=== PATIENT | female | born 1930 | race Caucasian/White ===

== ENCOUNTER 2016-08-30 23:47 | Inpatient (IN) | payer OTHER, MEDICARE ==
[~2016-08-30] VITALS: Ht 142.2 cm; Wt 63.5 kg
--- NOTE | 2016-08-30 23:52 | NUR ---
TRIAGE: FANNYA FROM FAMILYS HOME W/ HYPOGLYCEMIC EPISODE D/T RECENT DIET CHANGES, FINGERSTICK ON EMS ARRIVAL:32, MEDICATED W/ ORAL GLUCOSE AND FINGERSTICK INCREASED TO 121. PATIENT ARRIVES ALERT AND ORIENTED X3. DENIES CURRENT DIZZINESS/ LIGHTHEADEDNESS. CURRENTLY TAKES METFORMIN. HX COPD, BASELINE 2LNC. WAS JUST D/MILY FROM [facility] FOR COPD EXACERBATION.
--- NOTE | 2016-08-30 23:53 | NUR ---
MD CARDENAS EVALUATING PATIENT AT THIS TIME.
--- NOTE | 2016-08-30 23:56 | ED AMS/SEIZURE/WEAK/DIZZY ---
History of Present Illness General Chief Complaint: General Adult Stated Complaint: BIBA HYPOGLYCEMIA Source: patient, family, EMS Exam Limitations: no limitations Vital Signs & Intake/Output Vital Signs & Intake/Output Vital Signs Date Time Temp Pulse Resp B/P B/P Pulse O2 O2 Flow FiO2 Mean Ox Delivery Rate 08/31 0800 98.3 79 20 178/84 97 Room Air 08/31 0656 84 178/86 08/31 0526 Nasal 2.0L Cannula 08/31 0307 96.0 72 20 168/78 100 Nasal 2.0L Cannula 08/31 0000 96 Nasal 2.0L Cannula 08/30 2352 95.6 90 18 146/82 94 Nasal 2.0L Cannula Allergies Coded Allergies: No Known Allergies (08/31/16) Reconcile Medications Aspirin (Ecotrin*) 81 MG TABLET.DR 1 TAB PO DAILY HEART HEALTH (Reported) Budesonide 0.5 MG/2 ML AMPUL.NEB 1 AMP INH/JOSIAH DAILY COPD (Reported) Diltiazem HCl (Cardizem Cd) 360 MG CAP.ER.24H 1 CAP PO DAILY HEART HEALTH ( Reported) Ferrous Sulfate 325 MG (65 MG IRON) TABLET 1 TAB PO BID ANEMIA (Reported) Furosemide 40 MG TABLET 1 TAB PO QAM DIURETIC (Reported) Glyburide 5 MG TABLET 1 TAB PO QAM DIABETES (Reported) Irbesartan 300 MG TABLET 1 TAB PO DAILY HIGH BLOOD PRESSURE (Reported) Metformin HCl 1,000 MG TABLET 1 TAB PO BID DIABETES (Reported) Metoprolol Tartrate 25 MG TABLET 1 TAB PO BID HEART HEALTH (Reported) Pantoprazole Sodium 40 MG TABLET.DR 1 TAB PO BID ACID REFLUX (Reported) Pravastatin Sodium 80 MG TABLET 1 TAB PO QPM HIGH CHOLESTROL (Reported) Triage Note: TRIAGE: BIBA FROM FAMILYS HOME W/ HYPOGLYCEMIC EPISODE D/T RECENT DIET CHANGES, FINGERSTICK ON EMS ARRIVAL:32, MEDICATED W/ ORAL GLUCOSE AND FINGERSTICK INCREASED TO 121. PATIENT ARRIVES ALERT AND ORIENTED X3. DENIES CURRENT DIZZINESS/ LIGHTHEADEDNESS. CURRENTLY TAKES METFORMIN. HX COPD, BASELINE 2LNC. WAS JUST D/MILY FROM [facility] FOR COPD EXACERBATION. Triage Nurses Notes Reviewed? yes Onset: Abrupt Duration: hour(s): Timing: single episode today Injury Environment: home Severity: mild Modifying Factors: Improves With: other. Associated Symptoms: felt generalized weakness HPI: 86yo woman h/o diabetes, presents after hypoglycemic episode. Her family notes, "she was discharged about a week and a half ago with episode of congestive heart failure at [facility]. She has been living with us for the past week and half. She's been on Lasix. Tonight after dinner she felt a little weak in both of her legs. She did not pass out or feel chest pain or shortness of breath. I use my daughter's glucometer and it said that the her glucose was low. And so we called 911." The medics noted that her glucose was 32. She was given oral glucose supplementation. Follow-up glucose was in the low 100s. She reports upon arrival that she is feeling much better and is otherwise well. She reports that she did not have chest pain shortness of breath abdominal pain. She does confer that she had dizziness and generalized weakness in both of her legs. She is presently feeling well. Past History Travel History Traveled to [place] past 21 day No Medical History Any Pertinent Medical History? see below for history Cardiovascular: CHF, hypertension, hyperlipidemia Endocrine: diabetes Surgical History Surgical History: non-contributory Family History Hx Contributory? No Review of Systems Review of Systems Constitutional: Reports: no symptoms. EENTM: Reports: no symptoms. Respiratory: Reports: no symptoms. Cardiovascular: Reports: no symptoms. GI: Reports: no symptoms. Genitourinary: Reports: no symptoms. Musculoskeletal: Reports: no symptoms. Skin: Reports: no symptoms. Neurological/Psychological: Reports: no symptoms. Hematologic/Endocrine: Reports: no symptoms. Immunologic/Allergic: Reports: no symptoms. All Other Systems: Reviewed and Negative Physical Exam Physical Exam General Appearance: well developed/nourished, no apparent distress Head: atraumatic, normal appearance Eyes: Bilateral: normal appearance. Ears, Nose, Throat: normal pharynx, normal ENT inspection, hearing grossly normal Neck: normal inspection, supple, full range of motion Respiratory: normal breath sounds, chest non-tender, no respiratory distress, quiet respiration, lungs clear Cardiovascular: regular rate/rhythm Gastrointestinal: normal bowel sounds, soft, non-tender, no organomegaly Back: normal inspection Extremities: normal range of motion Neurologic/Psych: no motor/sensory deficits, awake, alert, oriented x 3 Skin: intact, normal color, warm/dry Core Measures ACS in differential dx? No CVA/TIA Diagnosis: No Severe Sepsis Present: No Septic Shock Present: No Progress Differential Diagnosis: electrolyte abnormality versus hypoglycemia versus dehydration versus renal failure versus other. Plan of Care: Orders Procedure Date/time Status Heart Healthy Diet 08/31 B Active Change service to 08/31 0656 Active LACTIC ACID 08/31 0621 Active CBC WITHOUT DIFFERENTIAL 08/31 0600 Active BASIC ELECTROLYTES PLUS BUN&CR 08/31 0600 Complete URINALYSIS 08/31 0533 Active Vital Signs 08/31 0525 Active Teach/Educate 08/31 0525 Active Pain Treatment and Response 08/31 0525 Active Nutritional Intake, Monitor 08/31 0525 Active Isolation 08/31 0525 Active Intake & Output 08/31 0525 Active Patient Care Conference 08/31 0525 Active Activity/Ambulation 08/31 0525 Active Pathway - chart 08/31 0426 Active House Staff 08/31 0426 Active Patient Data 08/31 0426 Active Code Status 08/31 0426 Active US-RENAL/KIDNEY 08/31 0410 Active Add-on Test (ER Only) 08/31 0410 Active Intake & Output 08/31 0410 Complete FingerStick- Glucose 08/31 0410 Active Patient Data 08/31 0316 Active Saline Lock 08/31 0253 Active Misc Message 08/31 0253 Active ED Holding Orders 08/31 0253 Active Admit to inpatient 08/31 0253 Active Vital Signs 08/31 0253 Active Code Status 08/31 0253 Complete CULTURE,STOOL 08/31 0032 Active C.DIFFICILE 08/31 0032 Active MAGNESIUM 08/31 0015 Complete FingerStick- Glucose 08/31 0003 Active VTE Mechanical Prophylaxis 08/31 UNK Active Telemetry/Charter Coordinator 08/31 UNK Active Nursing Misc 08/31 UNK Active TROPONIN LEVEL 08/30 2357 Complete COMPREHENSIVE METABOLIC PANEL 08/30 2357 Complete CBC WITHOUT DIFFERENTIAL 08/30 2357 Complete EKG 08/30 2357 Active Intake & Output 08/30 2350 Active Current Medications Sig/Elicia Start time Last Medication Dose Stop Time Status Admin Pravastatin Sodium 80 MG 1700 08/31 1700 AC (Pravachol) Aspirin Buffered 81 MG DAILY 08/31 1000 AC (Ecotrin) Diltiazem HCl 360 MG DAILY 08/31 1000 AC (Cardizem CD) Metoprolol Tartrate 25 MG BID 08/31 1000 AC 08/31 (Lopressor) 0656 Insulin Aspart 0 TIDAC 08/31 0800 AC (NovoLOG) Magnesium Sulfate 1 GM ONCE ONE 08/31 729 AC (Mag Sulfate in D5) 08/31 1129 Dextrose/Water 100 ML (D5W) Sodium Chloride 1,000 ML Q20H 08/31 729 AC (Normal Saline 0.9%) 08/31 2048 Omeprazole 40 MG DAILY AC 08/31 07 AC 08/31 (Prilosec) 0657 Heparin Sodium 5,000 UNIT Q8 08/31 06 AC 08/31 (Porcine) 0657 Acetaminophen 650 MG Q6P PRN 08/31 0430 AC (Tylenol) Laboratory Tests 08/31/16 0615: Lactic Acid Pending 08/31/16 0615: Anion Gap 17 H, Estimated GFR 16 L, BUN/Creatinine Ratio 25.4 H, CBC w Diff Pending, WBC Pending, RBC Pending, Hgb Pending, Hct Pending, MCV Pending, MCH Pending, RDW Pending, Plt Count Pending, MPV Pending, PUBS MCHC Pending 08/31/16 0321: Lactic Acid Cancelled 08/31/16 0015: Anion Gap 17 H, Estimated GFR 13 L, BUN/Creatinine Ratio 20.9, Glucose 95, Calcium 8.6, Magnesium 1.4 L, Total Bilirubin 0.3, AST 17, ALT 32, Alkaline Phosphatase 52, Troponin I 0.01, Total Protein 6.9, Albumin 4.5, Globulin 2.4, Albumin/Globulin Ratio 1.9, CBC w Diff NO MAN DIFF REQ, RBC 4.06 L, MCV 77.5 L , MCH 24.9 L, RDW 26.4 H, MPV 10.0, Gran % 84.5 H, Lymphocytes % 6.4 L, Monocytes % 8.3, Eosinophils % 0.6, Basophils % 0.2, Absolute Granulocytes 6.2, Absolute Lymphocytes 0.5 L, Absolute Monocytes 0.6, Absolute Eosinophils 0, Absolute Basophils 0, PUBS MCHC 32.1 L Microbiology 08/31 48 STOOL: Clostridium difficile Toxin A & B - RECD 08/31 48 STOOL: Stool Culture - RECD Diagnostic Imaging: Viewed by Me: Radiology Read. Discussed w/RAD: Radiology Read. CXR Impression: no acute disease, full report below Initial ED EKG: no acute changes Comments: PATIENT: OLIVIER GAGNON PRESENT AGE: 86 PATIENT ACCOUNT NO: [id number] : [birth year] LOCATION: [facility] ORDERING PHYSICIAN: JACINTO CARDENAS MD SERVICE DATE: 08/31/16 EXAM TYPE: RAD - XRY-PORTABLE CHEST XRAY EXAMINATION: XR PORTABLE CHEST CLINICAL INFORMATION: CHF COMPARISON: None TECHNIQUE: Portable frontal view of the chest was obtained. FINDINGS: Median sternotomy wires appear intact. The lungs are well expanded. No edema. Evaluation at the left base is limited due to prominence of the cardiac silhouette. No pleural effusion. No pneumothorax. No definite consolidation. No acute osseous abnormality. IMPRESSION: Prominent cardiac silhouette which limits evaluation at the left base. No edema. DICTATED BY: JUAN ALBERTO CAMPBELL MD DATE/TIME DICTATED:08/31/16408 CIRCULAR SAW FILER:JIAN DATE/TIME TRANSCRIBED:08/31/16408 CONFIDENTIAL, DO NOT COPY WITHOUT APPROPRIATE AUTHORIZATION. <Electronically signed in Other Vendor System> SIGNED BY: JUAN ALBERTO CAMPBELL MD 08/31 0413 Departure Departure Disposition: STILL A PATIENT Condition: Stable Clinical Impression Primary Impression: Renal failure Secondary Impressions: Hyperkalemia, Hypoglycemia Departure Forms: Customer Survey General Discharge Information Admission Note Spoke With: KENNEDY BARTON MD Documentation of Exam: Documentation of any treatments & extenuating circumstances including Concerns Regarding Discharge (functional status, medication knowledge or non-compliance, living conditions, etc.) that warrant an admission rather than observation: pt with complex presentation....with chf, on lasix, but now likely overdiuresed leading to longer clearance of her sulfonurylurea, resulting in hypoglycemia. pt merits gentle iv fluids, recheck creatinine, get records from [place]
--- NOTE | 2016-08-31 00:03 | NUR ---
FINGERSTICK 108. PT AWAKE, ALERT, TALKATIVE
--- NOTE | 2016-08-31 00:13 | NUR ---
LABS SENT SST, LAV, BLUE AND PANTO[facility]
[2016-08-31 00:30] LABS: ABSOLUTE BASOPHIL COUNT 0 /CUMM (0.0-0.2); ABSOLUTE EOSINOPHIL COUNT 0 /CUMM (0.0-0.7); ABSOLUTE GRANULOCYTE CT 6.2 /CUMM (1.4-6.5); ABSOLUTE LYMPH COUNT 0.5 /CUMM (1.2-3.4); ABSOLUTE MONOCYTE COUNT 0.6 /CUMM (0.10-0.60); BASOPHIL % 0.2 % (0.0-2.0); EOSINOPHIL % 0.6 % (0-5); GRANULOCYTE % 84.5 % (42.2-75.2); HEMATOCRIT 31.5 % (37-47); MEAN CORPUSCULAR HGB 24.9 PG (27.0-31.0); MEAN CORPUSCULAR HGB CONC 32.1 G/DL (33.0-37.0); MEAN CORPUSCULAR VOLUME 77.5 FL (81.0-99.0); PLATELET COUNT 187 /CUMM (130-400); RBC DISTRIBUTION WIDTH 26.4 % (11.5-14.5); RED BLOOD CELL CT 4.06 /CUMM (4.20-5.40); WHITE BLOOD CELL COUNT 7.4 /CUMM (4.8-10.8)
--- NOTE | 2016-08-31 00:33 | NUR ---
C-DIFF/STOOL CULTURE OBTAINED AND SENT TO LAB PER PATIENT AND PATIENT'S FAMILY REQUEST. PATIENT REPORTING "HAVING DIARRHEA PAST FEW DAYS."
--- NOTE | 2016-08-31 02:02 | NUR ---
CURRENT MD THERESA GARCAI AWARE AND AT BEDSIDE FOR REEVAL.
--- NOTE | 2016-08-31 02:35 | NUR ---
PATIENT BEING ASSISTED TO BATHROOM AT THIS TIME BY VENESSA VANG VIA WHEELCHAIR.
--- NOTE | 2016-08-31 03:20 | History & Physical ---
Past History Travel History Traveled to [place] past 21 day No Medical History Neurological: NONE EENT: NONE Cardiovascular: CHF Respiratory: NONE Gastrointestinal: NONE Hepatic: NONE Renal: NONE Musculoskeletal: NONE Psychiatric: NONE Endocrine: diabetes Blood Disorders: NONE Cancer(s): NONE CLINICAL TRIAL COORDINATOR/Reproductive: NONE
--- NOTE | 2016-08-31 03:42 | NUR ---
HOUSE STAFF AT BEDSIDE.
--- NOTE | 2016-08-31 03:57 | NUR ---
REPORT CALLED TO CHUY CARMICHAEL.
--- NOTE | 2016-08-31 04:01 | History & Physical ---
ESTEBAN CLAROS MD 08/31/16 0400: General Information and HPI MD Statement: I have seen and personally examined OLIVIER GAGNON and documented this H&P. The patient is a 86 year old F who presented with a patient stated chief complaint of hypoglycemia. 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 In the ED, patient was given oral glucose which increased to blood glucose from 32 to over 100. Patient states that today she was eating a sandwich fruit and seltzer when she had to use the bathroom and didn't want to trouble her son by telling him she wasn't feeling well. He was helping her to the bathroom when she stated that she felt unwell, dizzy, was diaphoretic, felt her heart racing and shaking. She was recently admitted to [facility] for COPD exacerbation. She also had several episodes of diarrhea and one episode of nausea and vomiting the past two days. Her rice dryer mechanic is Luz, her die cleaner was Dr. Ordaz but is changing to Dr. Thakkar. Allergies/Medications Allergies: Coded Allergies: No Known Allergies (08/31/16) Home Med list Aspirin (Ecotrin*) 81 MG TABLET.DR 1 TAB PO DAILY HEART HEALTH (Reported) Budesonide 0.5 MG/2 ML AMPUL.NEB 1 AMP INH/JOSIAH DAILY COPD (Reported) Diltiazem HCl (Cardizem Cd) 360 MG CAP.ER.24H 1 CAP PO DAILY HEART HEALTH ( Reported) Ferrous Sulfate 325 MG (65 MG IRON) TABLET 1 TAB PO BID ANEMIA (Reported) Furosemide 40 MG TABLET 1 TAB PO QAM DIURETIC (Reported) Glyburide 5 MG TABLET 1 TAB PO QAM DIABETES (Reported) Irbesartan 300 MG TABLET 1 TAB PO DAILY HIGH BLOOD PRESSURE (Reported) Metformin HCl 1,000 MG TABLET 1 TAB PO BID DIABETES (Reported) Metoprolol Tartrate 25 MG TABLET 1 TAB PO BID HEART HEALTH (Reported) Pantoprazole Sodium 40 MG TABLET.DR 1 TAB PO BID ACID REFLUX (Reported) Pravastatin Sodium 80 MG TABLET 1 TAB PO QPM HIGH CHOLESTROL (Reported) Compliance With Home Meds: GOOD Past History Travel History Traveled to [place] past 21 day No Medical History Neurological: NONE EENT: NONE Cardiovascular: CHF Respiratory: NONE Gastrointestinal: NONE Hepatic: NONE Renal: NONE Musculoskeletal: NONE Psychiatric: NONE Endocrine: diabetes Blood Disorders: NONE Cancer(s): NONE SPORTS CLERK/Reproductive: NONE Surgical History Surgical History: cardiac valve replacement unknown Past Family/Social History Functional Ability ADLs Independent: dressing, eating, toileting. Ambulation: independent IADLs Needs Assist: shopping, housework, transportation, medication admin. Review of Systems Review of Systems Constitutional: Reports: see HPI. Exam & Diagnostic Data Last 24 Hrs of Vital Signs/I&O Vital Signs Date Time Temp Pulse Resp B/P B/P Pulse O2 O2 Flow FiO2 Mean Ox Delivery Rate 08/31 0307 96.0 72 20 168/78 100 Nasal 2.0L Cannula 08/30 2352 95.6 90 18 146/82 94 Nasal 2.0L Cannula Physical Exam General Appearance Alert, Oriented X3, Cooperative, No Acute Distress Skin No Rashes, No Breakdown Skin Temp/Moisture Exam: Warm/Dry Neck Supple, No JVD, +2 Carotid Pulse wo Bruit Cardiovascular Regular Rate, Normal S1, Normal S2, early systolic murmur 2/6 Lungs Clear to Auscultation, Normal Air Movement Abdomen Normal Bowel Sounds, Soft, No Tenderness, No Masses Neurological Normal Speech, Strength at 5/5 X4 Ext, Normal Tone, Sensation Intact Extremities No Edema, Normal Pulses, No Tenderness/Swelling Vascular Normal Pulses, Pulses Symmetrical Last 24 Hrs of Labs/Kalen: Laboratory Tests 08/31/16 0015: Anion Gap 17 H, Estimated GFR 13 L, BUN/Creatinine Ratio 20.9, Glucose 95, Calcium 8.6, Magnesium Pending, Total Bilirubin 0.3, AST 17, ALT 32, Alkaline Phosphatase 52, Troponin I 0.01, Total Protein 6.9, Albumin 4.5, Globulin 2.4, Albumin/Globulin Ratio 1.9, CBC w Diff NO MAN DIFF REQ, RBC 4.06 L, MCV 77.5 L , MCH 24.9 L, RDW 26.4 H, MPV 10.0, Gran % 84.5 H, Lymphocytes % 6.4 L, Monocytes % 8.3, Eosinophils % 0.6, Basophils % 0.2, Absolute Granulocytes 6.2, Absolute Lymphocytes 0.5 L, Absolute Monocytes 0.6, Absolute Eosinophils 0, Absolute Basophils 0, PUBS MCHC 32.1 L Microbiology 08/31 48 STOOL: Clostridium difficile Toxin A & B - RECD 08/31 48 STOOL: Stool Culture - RECD Diagnostic Data EKG Results nsr rbbb CXR Results no consolidation, limited evaluation of left base Assessment/Plan Assessment: 86 year old female with past medical history of 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 1. Hypoglycemia: Monitor accuchecks Q2H Holding oral hypoglycemics Sliding scale insulin coverage if necessary Can give D5NS if patient becomes hypoglycemic 2. Acute Kidney Injury: likely due to combination of dehydration and nephrotoxic medications Hold metformin and lisinopril Can gently hydrate Renal ultrasound to assess for intrinsic renal disease if fails to improve Check post void residual for post renal failure Will hold of on aggressive IVF hydration with unknown LVEF Trend renal function in AM labs Can consider renal consultation if renal function worsens Avoid NSAIDs 3. Hyperkalemia: secondary to acute renal failure Patient was given kayexalate in the ED Repeat basic electrolytes and monitor potassium levels 4. CAD: Continue ASA, statin, cardizem and lopressor 5: COPD: no respiratory distress, continue supplemental oxygen 2L nasal cannula TRC evaluation DVT ppx-heparin 5000u subcutaneous Q8H Heart healthy diet Full code As Ranked By This Provider Problem List: 1. Hyperkalemia 2. Renal failure Core Measures/Miscellaneous Acute Coronary Syndrome ACS Diagnosis: No Cerebrovascular Accident CVA/TIA Diagnosis: No Congestive Heart Failure CHF Diagnosis: No VTE (View Protocol) VTE Risk Factors: Acute medical illness, Age > 40 No [facility] VTE prophylaxis d/t: No contraindications No VTE Pharm Prophylaxis d/t: No contraindications VTE Diagnosis: No VTE Type: NONE VTE Confirmed by (Test): NONE Sepsis (View Protocol) Severe Sepsis Present: No Septic Shock Septic Shock Present: No Miscellaneous Documentation Attending Case Discussed With: KNENEDY BARTON MD Primary Care Physician: NANCY THAKKAR MD Patient sees these Specialists cardiology pulmonary Level of Patient Care: Telemetry Resident Review Statement Resident Statement: examined this patient, discussed with sales management intern, agreed with sales management intern Other Findings: Patient is 86-year-old female with past medical history significant for oxygen dependent COPD, CAD, status post 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 According to patient she ate half of sandwich and was sitting on couch when she felt dizzy. She was about to go to restroom but was diaphoretic and sweaty. EMS was called and her blood sugar levels were 52. She denied chest pain, palpitations, syncopal episode, headache, any urinary complaints that admits for having 2-3 diarrhea episodes since yesterday. She also had an episode of vomiting yesterday. Vital signs on admission were temperature 95.6, pulse 90, respiratory rate 18, blood pressure 146/82 and she was saturating 94% on 2 L nasal cannula Labs on admission were WBC count 7.4, hemoglobin 10.1, hematocrit 31.5, platelet count 187, sodium 138, potassium 5.6, chloride 104, anion gap 17, BUNs 69, creatinine 3.3, glucose 95, magnesium 1.4. Chest x-ray was negative for any pulmonary edema. EKG was normal sinus rhythm with right bundle branch block. Physical examination Alert and related 3 Head atraumatic Neck supple Chest clear to auscultate Heart S1-S2 normal, systolic murmur Abdomen soft nontender Extremities shows no edema or cyanosis Neurological deficit noted Assessment and plan 86-year-old female with history of CHF, unknown ejection fraction, hypertension, hyperlipidemia, questionable CK D, diabetes mellitus, CAD status post bioprosthetic valve replacement came with chief complaint of hypoglycemic event at home and on admission labs found to have elevated creatinine and hyperkalemia most likely acute on chronic kidney injury. We will admit patient on telemetry floor and will address following problems Problem #1 acute kidney injury most likely acute on chronic kidney injury Problem #2 hyperkalemia most likely due a KI Problem #3 history of diabetes with hypoglycemic event Problem #4 history of hypertension Problem #5 CAD status post bioprosthetic valve replacement Problem #6 history of oxygen dependent COPD Plan We will request records from [facility] in a.m. We will watch patient closely for kidney functions and if it continues to elevate we will request nephrology evaluation We will hold nephrotoxic medications including metformin and lisinopril and will avoid NSAIDs Accu-Cheks every 2 hours for a few hours and if she doesn't have any further hypoglycemic events we can check every 6 hours. Insulin coverage for elevated blood sugars We will avoid IV fluids for now as of unknown ejection fraction and will order renal ultrasound to look for any intrinsic renal pathology. We will check post void bladder scan for residual urine to rule out any post renal/obstructive pathology We will check [place] [facility] records that if no recent echocardiogram will consider echocardiogram. Patient was given Kayexalate in ER and will repeat labs in a.m. Pharmacological DVT prophylaxis Heart healthy diet Patient is full code KENNEDY BARTON 08/31/16 0638: Attending MD Review Statement Attending Statement Attending MD Statement: examined this patient, discuss w/resident/PA/IP LITIGATION PARALEGAL, agreed w/resident/PA/IP LITIGATION PARALEGAL, reviewed EMR data (avail), reviewed images, amended to note Attending Assessment/Plan: CC: Low blood sugar PMH:? Heart failure, COPD, DM, HTN, CAD, aortic valve replacement ? Bioprosthetic Patient is poor historian, family is not available bedside. Patient was recently admitted 1 and half week back to [facility], according to her she had hint of pneumonia, her usual COPD and congestive heart failure. She is not aware of any treatment received in [facility]. She was discharged from there and has been living with her son and [id number]. 4 days back she had 5 watery bowel movements at home, resolved next day she was all right for the next 3 days then yesterday she had somewhat nausea and one episode of vomiting. Today she was feeling dizzy, sweating profusely so family called EMS, her blood glucose was 32 at that time. She was given medicated oral glucose and fingerstick improved to [address] Currently in ER patient denies any dizziness, lightheadedness, chest pain, worsening of shortness of breath. She had 3 watery stools according to her while in ER. Vitals: Temperature 95.6, HR 90, RR 18, blood pressure 146/82, saturating 96 on 2 L. On exam: A O 3, cooperative, no acute distress, neck supple, JVD normal, no lymphadenopathy, mucosa moist, no focal neurological deficit, no dependent edema , no obvious skin rashes or inflammation CVS: S1-S2, RRR, systolic murmur in the aortic area. RS: Very fine crackles bilaterally left more than right but air entry normal, no apparent wheezing.. Abdomen: Soft, NT, ND,, anterior abdominal wall hernia approximately 10 cm in diameter, reducible, no discoloration, bowel sounds present. Peripheral pulses and perfusion normal Labs: WBC 7.4, hemoglobin 10.1, hematocrit 31.5, neutrophils 84%, platelets 187, sodium 138, potassium 5.6, chloride 104, bicarbonate 17, anion gap 17, BUN 69, creatinine 3.3, glucose 95, calcium 8.6, LFT unremarkable, troponin less than 0.01 CXR: Prominent cardiac silhouette which limits evaluation at the left base. No edema. A and P 86 year old female with extensive past medical history but being poor historian and details unknown, never been admitted in this hospital to obtain previous records, presented to ER for episode of hypoglycemia with sugar of 32 at home. Patient had been feeling dizzy sweating and lightheadedness at that time, currently asymptomatic. Patient endorses some diarrhea on and off one episode 4 days back and today 3 watery stools nonbloody and one episode of vomiting. Patient was recently admitted in [facility] for possibly heart failure, COPD, pneumonia, patient is unaware of treatment. Patient lives with the son and [id number] and states that [id number] is very strict on her diet. Physical exam unremarkable except abdominal wall hernia but labs show creatinine of 3.3 with an elevated anion gap acidosis. It's unclear whether patient has any chronic kidney disease or if this is an acute change. In any such event patient is on oral glipizide and metformin which will not get cleared as expected and will cause persistent hypoglycemia, patient would benefit from admission for further evaluation of kidney injury and management of hypoglycemia + Hypoglycemia secondary to oral hypoglycemic in setting of renal insufficiency + ANIBAL versus CKD + Anion gap metabolic acidosis + Anemia - Admit on telemetry - Saline lock IV - Strict I's and O's - Accu-Chek every 2 hours - If persistently hyperglycemic then start D5 NS drip And Consult endocrinology - Hold metformin and sulfonylurea - Trend lactate - Please obtain records from [facility] to compare renal function, recent 2-D echocardiogram whether patient has acute or chronic kidney disease, worsened in setting of dehydration versus having cardiorenal syndrome - Hold Lasix, ACEI - Continue metoprolol, diltiazem, iron supplementation and aspirin - Renal ultrasound in a.m. - Post void bladder scan - C. difficile stool - Watch for worsening diarrhea - DVT prophylaxis with heparin - Adequate pain control
--- NOTE | 2016-08-31 04:13 | RADIOLOGY REPORT ---
EXAMINATION: XR PORTABLE CHEST CLINICAL INFORMATION: CHF COMPARISON: None TECHNIQUE: Portable frontal view of the chest was obtained. FINDINGS: Median sternotomy wires appear intact. The lungs are well expanded. No edema. Evaluation at the left base is limited due to prominence of the cardiac silhouette. No pleural effusion. No pneumothorax. No definite consolidation. No acute osseous abnormality. IMPRESSION: Prominent cardiac silhouette which limits evaluation at the left base. No edema.
--- NOTE | 2016-08-31 04:24 | NUR ---
IV EST #20 LEFT HAND. MD BARTON REMAINS AT BEDSIDE.
--- NOTE | 2016-08-31 04:32 | NUR ---
PATIENT MEDICATED W/ KAEXYLATE PER EMAR. TOLERATED WELL.
[2016-08-31] MEDS ORDERED: FERROUS SULFAT325 M3 PO (04:33)
[2016-08-31] MEDS ORDERED: PANTOPRAZOLE SO40 M1 PO (04:33)
[2016-08-31] MEDS ORDERED: FUROSEMIDE40 M1 PO (04:35)
[2016-08-31] MEDS ORDERED: BUDESONIDE0.5 MG/21 INH/SOL (04:36)
[2016-08-31] MEDS ORDERED: METOPROLOL TART25 M1 PO (04:37)
[2016-08-31] MEDS ORDERED: CARDIZEM CD360 M1 PO (04:38)
[2016-08-31] MEDS ORDERED: IRBESARTAN300 M1 PO (04:39)
[2016-08-31] MEDS ORDERED: METFORMIN HCL1000 M1 PO (04:40)
--- NOTE | 2016-08-31 04:40 | NUR ---
PER MD YANA MD IS PUTTING IN THE MED LIST FOR THE PATIENT AT THIS TIME.
[2016-08-31] MEDS ORDERED: PRAVASTATIN SOD80 M2 PO (04:41)
[2016-08-31] MEDS ORDERED: ASPIRIN EC81 M1 PO (04:42)
[2016-08-31] MEDS ORDERED: GLYBURIDE5 M1 PO (04:42)
--- NOTE | 2016-08-31 06:39 | Admission Certification ---
Admission Certification Certification Statement - As attending physician, I certify that at the time of - admission, based on clinical presentation, severity of - symptoms, need for further diagnostic testing and - therapeutic interventions, and risk of adverse outcomes - without in-hospital treatment, in my clinical assessment, - this patient requires an acute hospital stay for a minimum - of two nights or longer. I have also considered psychsocial - factors such as support system, advanced age, financial - issues, cognitive issues, and failed out-patient treatments, - past re-admission history, safety of patient, and lack of - compliance as applicable. Specific rationale supporting this admission is: Renal insufficiency, hypoglycemia
[2016-08-31 07:52] VITALS: BP 174/62; BP 178/84
[2016-08-31 08:00] VITALS: BP 178/84
[2016-08-31 08:54] LABS: ABSOLUTE BASOPHIL COUNT 0 /CUMM (0.0-0.2); ABSOLUTE EOSINOPHIL COUNT 0.1 /CUMM (0.0-0.7); ABSOLUTE GRANULOCYTE CT 4.3 /CUMM (1.4-6.5); ABSOLUTE LYMPH COUNT 0.8 /CUMM (1.2-3.4); ABSOLUTE MONOCYTE COUNT 0.6 /CUMM (0.10-0.60); BASOPHIL % 0.5 % (0.0-2.0); EOSINOPHIL % 1.5 % (0-5); GRANULOCYTE % 73.4 % (42.2-75.2); HEMATOCRIT 30.8 % (37-47); MEAN CORPUSCULAR HGB 25.1 PG (27.0-31.0); MEAN CORPUSCULAR HGB CONC 31.9 G/DL (33.0-37.0); MEAN CORPUSCULAR VOLUME 78.7 FL (81.0-99.0); MEAN PLATELET VOLUME 10.8 FL (7.4-10.4); PLATELET COUNT 166 /CUMM (130-400); RBC DISTRIBUTION WIDTH 26.5 % (11.5-14.5); RED BLOOD CELL CT 3.92 /CUMM (4.20-5.40); WHITE BLOOD CELL COUNT 5.8 /CUMM (4.8-10.8)
--- NOTE | 2016-08-31 11:20 | PN- Housestaff ---
THEODORA CARDOSO,MORGAN 08/31/16 1100: Subjective Follow-up For: #1. Hypoglycemia #2. Acute kidney injury #3. Hyperkalemia #4. CAD #5. COPD Complaints: pain scale (0-10) Tele-Events Since Last Visit: A. fib and bundle branch block rate 81-82 no events Subjective: She was seen and examined bedside. She denies feeling dizzy no diaphoresis no palpitations no tremulousness. She currently complains of diarrhea, although she is on Kayexalate which causes this. She has not vomited since admission. Overall patient feels okay but notes that she is embarrassed because of her diarrhea. Review of Systems Constitutional: Reports: weakness. EENTM: Reports: no symptoms. Cardiovascular: Reports: no symptoms. Respiratory: Reports: no symptoms. Gastrointestinal: Reports: diarrhea. Genitourinary: Reports: no symptoms. Musculoskeletal: Reports: no symptoms. Skin: Reports: no symptoms. Neurological/Psychological: Reports: no symptoms. Hematologic/Endocrine: Reports: no symptoms. Immunologic/Allergic: Reports: no symptoms. Objective Last 24 Hrs of Vital Signs/I&O Vital Signs Date Time Temp Pulse Resp B/P B/P Pulse O2 O2 Flow FiO2 Mean Ox Delivery Rate 08/31 0800 94 Nasal 2.0L Cannula 08/31 0800 98.3 79 20 178/84 97 Room Air 08/31 0656 84 178/86 08/31 0526 Nasal 2.0L Cannula 08/31 0307 96.0 72 20 168/78 100 Nasal 2.0L Cannula 08/31 0000 96 Nasal 2.0L Cannula 08/30 2352 95.6 90 18 146/82 94 Nasal 2.0L Cannula Intake & Output 08/31 1600 08/31 0800 08/31 0000 Intake Total 200 Output Total Balance 200 Intake, Oral 200 Number 1 Bowel Movements Patient 140 lb Weight Weight Reported by Patient Measurement Method Physical Exam General Appearance: Alert, Oriented X3, Cooperative, No Acute Distress Skin: No Rashes, No Breakdown, No Significant Lesion Skin Temp/Moisture Exam: Warm/Dry Sepsis Skin Exam (color): Normal for Ethnicity HEENT: Atraumatic, PERRLA, EOMI Neck: Supple, No JVD, No thryomegaly Cardiovascular: Regular Rate, Normal S1, Normal S2, No Murmurs, Gallops, Rubs Lungs: Clear to Auscultation, Normal Air Movement Abdomen: Normal Bowel Sounds, Soft, No Tenderness, No Hepatospenomegaly, No Masses Neurological: Normal Speech Extremities: No Clubbing, No Cyanosis, No Edema, Normal Pulses, No Tenderness/ Swelling Vascular: Normal Pulses Sepsis Peripheral Pulse Location: Radial Sepsis Peripheral Pulse Exam: Normal Other Physical Findings: Patient with dry mouth Current Medications: Current Medications Sig/Elicia Start time Last Medication Dose Route Stop Time Status Admin Acetaminophen 650 MG Q6P PRN 08/31 0430 AC PO Aspirin Buffered 81 MG DAILY 08/31 1000 AC 08/31 PO 0903 Diltiazem HCl 360 MG DAILY 08/31 1000 AC 08/31 PO 0903 Heparin Sodium 5,000 UNIT Q8 08/31 0600 AC 08/31 (Porcine) SC 0657 Insulin Aspart 0 TIDAC 08/31 0800 AC SC Magnesium Oxide 400 MG ONE ONE 08/31 0545 DC 08/31 PO 08/31 0546 0903 Magnesium Sulfate 1 GM ONCE ONE 08/31 0730 AC 08/31 Dextrose/Water 100 ML IV 08/31 1129 0903 Metoprolol Tartrate 25 MG BID 08/31 1000 AC 08/31 PO 0656 Omeprazole 40 MG DAILY AC 08/31 0700 AC 08/31 PO 0657 Pravastatin Sodium 80 MG 1700 08/31 1700 AC PO Sodium Chloride 1,000 ML Q20H 08/31 0730 AC 08/31 IV 08/31 2049 0904 Sodium Polystyrene 0 .STK-MED ONE 08/31 0434 DC Sulfonate .ROUTE Sodium Polystyrene 60 ML ONCE ONE 08/31 0300 DC 08/31 Sulfonate PO 08/31 0301 0432 Last 24 Hrs of Lab/Kalen Results Last 24 Hrs of Labs/Mics: Laboratory Tests 08/31/16 0950: Lactic Acid 1.7 08/31/16 0615: Lactic Acid 3.4 H 08/31/16 0615: Anion Gap 17 H, Estimated GFR 16 L, BUN/Creatinine Ratio 25.4 H, CBC w Diff NO MAN DIFF REQ, RBC 3.92 L, MCV 78.7 L, MCH 25.1 L, RDW 26.5 H, MPV 10.8 H , Gran % 73.4, Lymphocytes % 13.8 L, Monocytes % 10.8 H, Eosinophils % 1.5, Basophils % 0.5, Absolute Granulocytes 4.3, Absolute Lymphocytes 0.8 L, Absolute Monocytes 0.6, Absolute Eosinophils 0.1, Absolute Basophils 0, PUBS MCHC 31.9 L 08/31/16 0321: Lactic Acid Cancelled 08/31/16 0015: Anion Gap 17 H, Estimated GFR 13 L, BUN/Creatinine Ratio 20.9, Glucose 95, Calcium 8.6, Magnesium 1.4 L, Total Bilirubin 0.3, AST 17, ALT 32, Alkaline Phosphatase 52, Troponin I 0.01, Total Protein 6.9, Albumin 4.5, Globulin 2.4, Albumin/Globulin Ratio 1.9, CBC w Diff NO MAN DIFF REQ, RBC 4.06 L, MCV 77.5 L , MCH 24.9 L, RDW 26.4 H, MPV 10.0, Gran % 84.5 H, Lymphocytes % 6.4 L, Monocytes % 8.3, Eosinophils % 0.6, Basophils % 0.2, Absolute Granulocytes 6.2, Absolute Lymphocytes 0.5 L, Absolute Monocytes 0.6, Absolute Eosinophils 0, Absolute Basophils 0, PUBS MCHC 32.1 L Microbiology 08/31 48 STOOL: Clostridium difficile Toxin A & B - RECD 08/31 48 STOOL: Stool Culture - RECD Orders ECHO Findings: Normal sinus rhythm right bundle branch block. Radiology Findings: X-ray shows no consolidation limited evaluation of the left lung base Lines/Diet/Fluids Fluids/Infusions: patient had received no fluids in the ER, we started her on 75 an hour of normal saline. 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 Her blood glucose was 32 at home and was found to be 52 by EMS. She also had a 3 day history of diarrhea and vomiting 1 day. In the ED she was found to have elevated creatinine and hyperkalemia to 5.6. Patient was given Kayexalate in the emergency room and no fluids as history of CHF is uncertain. She was admitted to the telemetry floor for monitoring because of her hyperkalemia. * Hypoglycemic event with history of diabetes * Hyperkalemia * Acute kidney injury with questionable history of CKD * Hypertension * COPD * History of CAD Plan Hypoglycemia: * Monitor blood glucose with Accu-Cheks every 2 hours. If blood sugar is stable can switch to Accu-Cheks every 6 hours. * Hold oral hypoglycemics and use sliding scale insulin coverage * Give D5 normal saline if patient becomes hypoglycemic Hyperkalemia * Likely secondary to acute renal failure * Continue to monitor patient on telemetry * Was given Kayexalate in the ED which causes diarrhea, further depleting her volume. * Currently potassium is 5.1 * Monitor electrolytes. Acute kidney injury probably due to dehydration with questionable chronic kidney disease * Patient is quite dehydrated as is evidenced by her physical exam. This is likely contributed to her acute kidney injury. Patient was not given any fluids in the ED because of her unknown congestive heart failure status. Records were obtained from her recent echocardiogram in July 2016 which showed a normal left ejection fraction of 55% but moderate diastolic dysfunction. Currently she is being rehydrated with normal saline 75 an hour. * Chest x-ray shows prominent cardiac silhouette which limits evaluation at the left base, no edema. Physical exam shows clear lungs and she is satting 97% oxygen on room air. * Chest around renal/kidney done today shows no evidence of upper urinary tract obstruction but nonspecific evidence of renal disease * Urinalysis is normal except for some urine protein, and a moderate amount of bacteria. Specific gravity is normal at 1.01. Leukocyte esterase is negative signifying no urinary tract infection with Escherichia coli however this cannot rule out urinary tract infection with another bacteria species. * Patient's creatinine here was 3.3 in the ED, and is now 2.8. Trending down. * Lactic acid was 3.4 now is 1.7, trending down. Likely due to dehydration. * Patient's normal creatinine has been between 1.09 and 1.45 during the previous month when she was admitted to [facility], mild chronic kidney disease. * Hold potentially nephrotoxic drugs including her home metformin and lisinopril , avoid NSAIDs. Hold glipizide as well as it is renally cleared and patients with low renal clearance will retain it which will lead to persistent hypoglycemia. * As patient is severely dehydrated and has been having diarrhea, check stool for C. difficile. COPD * Is currently in no respiratory distress * Can continue on supplemental oxygen as needed CAD and Hypertension * Aspirin, pravastatin 80 mg, Cardizem 360 mg by mouth daily, Lopressor 25 mg by mouth 2 times a day CODE STATUS: Full Heart healthy diet DVT prophylaxis: Heparin 5000 units subcutaneous every 8 hours Problem List: 1. Hyperkalemia 2. Hypoglycemia 3. Acute on chronic renal failure Pain Ratin Pain Location: NONE Pain Goal: Remain pain free Pain Plan: NA Tomorrow's Labs & Rationales: BEP cbc and urinalysis KAYLAN PRATT MD 08/31/169: Attending MD Review Statement Attending Statement Attending MD Statement: examined this patient, discuss w/resident/PA/MINERALOGY PROFESSOR, agreed w/resident/PA/MINERALOGY PROFESSOR, reviewed EMR data (avail), discussed with nursing, reviewed images, amended to note Attending Assessment/Plan: The patient was seen and discussed with house staff. Appears clinically volume depleted. Creatinine decreased from 3.3 to 2.5 with hydration. No clinical CHF. Await records from [facility]. Hold oral hypoglycemics and follow sugars.
[2016-08-31 12:47] VITALS: BP 144/68
--- NOTE | 2016-08-31 13:33 | ULTRASOUND REPORT ---
EXAMINATION: US RETROPERITONEAL COMPLETE (RENAL) CLINICAL INFORMATION: Renal failure. COMPARISON: None TECHNIQUE: Real-time imaging of the kidneys and bladder. FINDINGS: RIGHT KIDNEY: 11.5 x 7 x 4.7 cm (SAG x AP x TRV). The kidney has normal cortical thickness. The renal cortex appears diffusely hyperechoic, as may be seen in medical renal disease. No nephrolithiasis or hydronephrosis. There is a 1.2 cm simple cyst of the lower pole. LEFT KIDNEY: 9.4 x 5.2 x 4.6 cm (SAG x AP x TRV). The kidney has normal cortical thickness. The cortex appears diffusely hyperechoic. No focal parenchymal lesion, nephrolithiasis or hydronephrosis. BLADDER: Urinary bladder is well-distended with estimated volume of 525 mL. No bladder debris, calculus or diverticulum. Ureteral jets were not identified during the time of imaging. IMPRESSION: 1. No evidence of upper urinary tract obstruction. 2. Kidneys are relatively echogenic, bilaterally, as may be seen in medical renal disease.
[2016-08-31 14:52] VITALS: BP 140/64
[2016-08-31 23:16] VITALS: BP 148/78
[2016-09-01 06:50] VITALS: BP 128/72
[2016-09-01 08:46] LABS: ABSOLUTE BASOPHIL COUNT 0 /CUMM (0.0-0.2); ABSOLUTE EOSINOPHIL COUNT 0.1 /CUMM (0.0-0.7); ABSOLUTE GRANULOCYTE CT 3.4 /CUMM (1.4-6.5); ABSOLUTE LYMPH COUNT 0.6 /CUMM (1.2-3.4); ABSOLUTE MONOCYTE COUNT 0.5 /CUMM (0.10-0.60); BASOPHIL % 0.7 % (0.0-2.0); EOSINOPHIL % 1.8 % (0-5); GRANULOCYTE % 72.9 % (42.2-75.2); HEMATOCRIT 28.9 % (37-47); MEAN CORPUSCULAR HGB CONC 32.3 G/DL (33.0-37.0); MEAN CORPUSCULAR VOLUME 77.4 FL (81.0-99.0); MEAN PLATELET VOLUME 9.9 FL (7.4-10.4); PLATELET COUNT 143 /CUMM (130-400); RBC DISTRIBUTION WIDTH 25.6 % (11.5-14.5); RED BLOOD CELL CT 3.73 /CUMM (4.20-5.40); WHITE BLOOD CELL COUNT 4.7 /CUMM (4.8-10.8)
--- NOTE | 2016-09-01 09:10 | PN- Student ---
Subjective Subjective: This morning Ms. Aden states she is feeling good. She reports her last loose stool was aroung 3pm yesterday and has not had a bowel movement since. Patient denies any chest pain, shortness or breath, or any pain at this time. Objective Objective: Vitals T: 97.9, HR 75, RR 18, BP 128/72, O2 sat 97% on 2L nasal cannula. Physical Exam General: Patient is laying comfortably in hospital bed in no acute distress HEENT: EOMI, Palpebral conjunctiva pallor, Mouth appears dry CV: Regular rate and rhythm, Systolic murumr noted /. Lungs: Clear to auscultation Abdomen: Hernia noted, Normal active bowel sounds on auscultation, Non-tender to palpation Extremities: No edema noted. Healing bruises noted on shins which patient states was from a recent fall at home. Skin: skin tenting noted Pertinent Labs WBC 4.7, RBC 3.73, HgB 9.3. Hct 28.9 Cl 110, BUN 59, Creatinine 2.4,Estimated GFR 19 Renal Ultrasound on 08/31 No evidence of upper urinary tract obstruction, kidneys are echogenic bilaterally as may be seen in medical renal disese Chest X-ray on 08/31 Prominent cardiac silhouette which limits evaluation at the left base. No edema. Previous Echo 08/07/16 Performed at [facility] 1. Normal left ventricular systolic function. Mild concentric left ventricular hypertrophy. LVEF estimated at 50-55%. Mild basal/mild infolateral hypokinesis. Apical hypokinesis. Moderate diastolic dysfunction consistent with increased left atrial pressure. 2. Bioprosthetic aortic valve present. Peack aortic velosity 2.8m/s 3. Mild mitral regurgitation. 4. Mild tricuspid regurgitation with mild pulmonary hypertension. PSAP of 47mmHg with estimated RAP of 5mmHg. 5.Left atrium is moderately dilated. Results Results: Laboratory Tests 09/01/16 0631: Anion Gap 10, Estimated GFR 19 L, BUN/Creatinine Ratio 24.6, CBC w Diff NO MAN DIFF REQ, RBC 3.73 L, MCV 77.4 L, MCH 25.0 L, RDW 25.6 H, MPV 9.9, Gran % 72.9, Lymphocytes % 13.4 L, Monocytes % 11.2 H, Eosinophils % 1.8, Basophils % 0.7, Absolute Granulocytes 3.4, Absolute Lymphocytes 0.6 L, Absolute Monocytes 0.5, Absolute Eosinophils 0.1, Absolute Basophils 0, PUBS MCHC 32.3 L 08/31/16 1505: Anion Gap 15, Estimated GFR 18 L, BUN/Creatinine Ratio 23.6 08/31/16 0950: Lactic Acid 1.7 08/31/16 0615: Lactic Acid 3.4 H 08/31/16 0615: Anion Gap 17 H, Estimated GFR 16 L, BUN/Creatinine Ratio 25.4 H, CBC w Diff NO MAN DIFF REQ, RBC 3.92 L, MCV 78.7 L, MCH 25.1 L, RDW 26.5 H, MPV 10.8 H , Gran % 73.4, Lymphocytes % 13.8 L, Monocytes % 10.8 H, Eosinophils % 1.5, Basophils % 0.5, Absolute Granulocytes 4.3, Absolute Lymphocytes 0.8 L, Absolute Monocytes 0.6, Absolute Eosinophils 0.1, Absolute Basophils 0, PUBS MCHC 31.9 L 08/31/16 0533: Urine Color YEL, Urine Clarity CLEAR, Urine pH 6.0, Ur Specific [place] 1.010, Urine Protein 30 H, Urine Ketones NEG, Urine Nitrite NEG, Urine Bilirubin NEG, Urine Urobilinogen 0.2, Ur Leukocyte Esterase NEG, Ur Microscopic SEDIMENT EXAMINED, Urine WBC 1-3 H, Ur Epithelial Cells FEW, Urine Bacteria MOD H, Urine Hemoglobin NEG, Urine Glucose NEG 08/31/16 0321: Lactic Acid Cancelled 08/31/16 0015: Anion Gap 17 H, Estimated GFR 13 L, BUN/Creatinine Ratio 20.9, Glucose 95, Calcium 8.6, Magnesium 1.4 L, Total Bilirubin 0.3, AST 17, ALT 32, Alkaline Phosphatase 52, Troponin I 0.01, Total Protein 6.9, Albumin 4.5, Globulin 2.4, Albumin/Globulin Ratio 1.9, CBC w Diff NO MAN DIFF REQ, RBC 4.06 L, MCV 77.5 L , MCH 24.9 L, RDW 26.4 H, MPV 10.0, Gran % 84.5 H, Lymphocytes % 6.4 L, Monocytes % 8.3, Eosinophils % 0.6, Basophils % 0.2, Absolute Granulocytes 6.2, Absolute Lymphocytes 0.5 L, Absolute Monocytes 0.6, Absolute Eosinophils 0, Absolute Basophils 0, PUBS MCHC 32.1 L Microbiology 08/31 48 STOOL: Clostridium difficile Toxin A & B - RES 08/31 48 STOOL: Stool Culture - RES Assessment/Plan Assessment: Ms. Aden is an 86 year old female with past medical history significant for COPD on 2L nasal cannula home oxygen, stage 2 diastolic heart failure, DM II, hypertension, esophageal cancer, and history of aortic valve replacement with bovine valve, who initially presented with hypoglycemia, diarrhea, and signs of dehydration. Today she has no complaints and says she is feeling much better. 1. Hypoglycemia and history of DM II 2. Hyperkalemia 3. Acute Kiney Injury 4. Anemia 5. History of hypertension and CAD 6. History of COPD 7. Questionable history of paroxysmal afib/ questionable afib on overnight telemerty Plan: 1. Hypoglycemia and history of DMII * Monitor accuchecks every TID. * Hold oral hypoglycemics. * Give D5NS if patient becomes hypoglycemic. * Endocrinology consulted due to actue on chronic renal failure and hypoglycemia Recommendations: - Home metformin to be discontinued due to renal status - Trial of Nateglinide 60mg three times a day before meals - Continue NovoLog sliding scale: Sliding scale NovoLog should start with the sugar above 200 so that we can observe the effects of the nateglinide. -Change sliding-scale NovoLog to be less than 200 give no insulin, -201-250 give 2 units NovoLog, -251-300 give 3 units NovoLog, -301-350 give 4 units NovoLog, -351-400 give 5 units NovoLog. 2. Hyperkalemia * Given kayexalate in ED which can perpetuate diarrhea and dehydration. * Last value: 4.8 * Continue monitoring chemistry. 3. Acute Kidney Injury on top of chronic renal failure * Was given 1,000mL @ 75ml/HR normal saline yesterday and BUN and creatinine decreased. * Another 1,000ml ordered today. * Recheck creatinine levels in A.M. * Last creatinine was 2.4. * Continue to hold any nephrotoxic medications. 4. Anemia * Hb 9.8 today. Hemoglobin was between 7.7 and 8.5 during admission to [facility] 2 weeks ago. * Restart home Ferrous sulfate. * Hemoglobin may decrease after fluids due to dilutional effect. If drops below 8 may need transfusion. 5. History of hypertension and CAD * Holding Irbesartan until improved renal function * Continue metoprolol 25mg BID. Patients HR was trending lower today. Hold if systolic is below 90 or HR is below 50 BPM. * Continue home baby aspirin and pravastatin 80mg. * Continue cardizem 360 daily. 6. History of COPD - in no current respiratory distress * Continue home dose pulmicort. * Continue oxygen 2L nasal cannula. 7. Questionable history of paroxysmal afib/ questionable afib on overnight telemetry * Cardiology consulted due to elevated [id number] VASc score, afib per overnight telemetry, and no home anticoagulants * Director Of Logistics determined EKG's from [facility] show PAC's but no evidence of MAT or afib. Underlying conduction system disease with a bundle branch block. -Anticoagulants not indicated at this time. -Continue current management. -Continue telemetry monitoring. -Consider follow up echocardiogram. DVT prophylaxis Heart healthy Diet Code Status: Full
--- NOTE | 2016-09-01 11:27 | Cons- Cardiology ---
General Information and HPI Consulting Request Date of Consult: 09/01/16 Requested By: KAYLAN PRATT MD Reason for Consult: Assess for atrial arrhythmias Source of Information: patient, old records Exam Limitations: no limitations History of Present Illness: The patient is an 78-year-old female who is followed by Dr. 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 I am covering for Dr. Mlils today is his partner. The patient is in 86-year-old female with a past medical history of chronic obstructive pulmonary disease, on home oxygen, diabetes, bioprosthetic aortic valve aortic valve replacement, reportedly with no evidence of coronary disease at the time of the cardiac catheterization, who presents to the hospital immediately emergency room with hypoglycemia and acute renal insufficiency. At the time of the admission, the patient was noted to be diaphoretic and dizzy. At that time, the patient noted heart racing, but no documented arrhythmias have been present. Of note, she was recently admitted to [facility] for a COPD exacerbation. At the time of that admission, she was reportedly to arrhythmias but they were not felt to be atrial fibrillation, possibly M a T. She also had an echocardiogram at that time which showed wall motion abnormalities of unclear etiology with preserved left ventricular systolic function. I was asked see the patient to better assess for the status of her atrial arrhythmias. Allergies/Medications Allergies: Coded Allergies: No Known Allergies (08/31/16) Home Med List: Aspirin (Ecotrin*) 81 MG TABLET.DR 1 TAB PO DAILY HEART HEALTH (Reported) Budesonide 0.5 MG/2 ML AMPUL.NEB 1 AMP INH/JOSIAH DAILY COPD (Reported) Diltiazem HCl (Cardizem Cd) 360 MG CAP.ER.24H 1 CAP PO DAILY HEART HEALTH ( Reported) Ferrous Sulfate 325 MG (65 MG IRON) TABLET 1 TAB PO BID ANEMIA (Reported) Furosemide 40 MG TABLET 1 TAB PO QAM DIURETIC (Reported) Glyburide 5 MG TABLET 1 TAB PO QAM DIABETES (Reported) Irbesartan 300 MG TABLET 1 TAB PO DAILY HIGH BLOOD PRESSURE (Reported) Metformin HCl 1,000 MG TABLET 1 TAB PO BID DIABETES (Reported) Metoprolol Tartrate 25 MG TABLET 1 TAB PO BID HEART HEALTH (Reported) Pantoprazole Sodium 40 MG TABLET.DR 1 TAB PO BID ACID REFLUX (Reported) Pravastatin Sodium 80 MG TABLET 1 TAB PO QPM HIGH CHOLESTROL (Reported) Current Medications: Current Medications Sig/Elicia Start time Last Medication Dose Route Stop Time Status Admin Acetaminophen 650 MG Q6P PRN 08/31 0430 AC PO Aspirin Buffered 81 MG DAILY 08/31 1000 AC 09/01 PO 0818 Budesonide 0.5 MG DAILY 08/31 1900 AC 09/01 INH 0951 Diltiazem HCl 360 MG DAILY 08/31 1000 AC 09/01 PO 0817 Heparin Sodium 5,000 UNIT Q8 08/31 0600 AC 09/01 (Porcine) SC 0600 Insulin Aspart 0 TIDAC 08/31 0800 AC 08/31 SC 1741 Magnesium Sulfate 1 GM ONCE ONE 08/31 0730 DC 08/31 Dextrose/Water 100 ML IV 08/31 1129 0903 Metoprolol Tartrate 25 MG BID 08/31 1000 AC 09/01 PO 0818 Omeprazole 40 MG DAILY AC 08/31 0700 AC 09/01 PO 0817 Patient Medication 1 ED .STK-MED ONE 08/31 1414 IA Teaching ED 08/31 1415 Pravastatin Sodium 80 MG 1700 08/31 1700 AC 08/31 PO 1741 Sodium Chloride 1,000 ML Q13H 09/01 1015 AC IV Sodium Chloride 2 SPRAY Q4P PRN 08/31 2130 AC ARIANE 09/07 2119 Sodium Chloride 1,000 ML Q20H 08/31 0730 DC 08/31 IV 08/31 2049 0904 Past History Travel History Traveled to [place] past 21 day No Medical History Blood Transfusion Hx: No Neurological: NONE EENT: NONE Cardiovascular: CHF, hypertension, hyperlipidemia Respiratory: NONE Gastrointestinal: NONE Hepatic: NONE Renal: NONE Musculoskeletal: NONE Psychiatric: NONE Endocrine: diabetes Blood Disorders: NONE Cancer(s): THROAT CA INCIDENT 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 Home Smoking Status: Former Smoker Functional Ability ADLs Independent: dressing, eating, toileting. Ambulation: independent IADLs Needs Assist: shopping, housework, transportation, medication admin. ECHO Results (as available) Date of last Echo 08/07/16 EF% 50 Report: This echocardiogram was performed at [facility]. 1. A normally functioning bioprosthetic aortic valve was present with a peak gradient of 2.8 m/s. Line 2. The left ventricular chamber was normal in size with mild concentric hypertrophy and focal inferolateral/inferobasal hypokinesia with apical akinesia and an ejection fraction of 50-55%. 3. Mild pulmonary hypertension was present with a peak RV systolic pressure of 48 mmHg. 4. Mild mitral and tricuspid insufficiency. Exam & Diagnostic Data Vital Signs and I&O Vital Signs Date Time Temp Pulse Resp B/P B/P Pulse O2 O2 Flow FiO2 Mean Ox Delivery Rate 09/01 0956 98 Nasal 2.0L Cannula 09/01 0835 Nasal 2.0L Cannula 09/01 0818 75 128/72 09/01 0650 97.9 75 18 128/72 97 Nasal Cannula 09/01 0000 Nasal 2.0L Cannula 08/31 2316 98.6 93 20 148/78 97 Nasal Cannula 08/31 2141 Nasal 2.0L Cannula 08/31 2122 96 140/78 08/31 1600 97 Nasal 2.0L Cannula 08/31 1452 98.2 68 18 140/64 97 Nasal 2.0L Cannula 08/31 1247 82 144/68 Intake & Output 09/01 1600 09/01 0800 09/01 0000 08/31 1600 08/31 0800 08/31 0000 Intake Total 383 287 6919 200 Output Total 900 500 Balance -800 820 580 200 Intake, IV 400 600 Intake, Oral 100 420 480 200 Number 3 1 Bowel Movements Output, Urine 900 500 Patient 140 lb Weight Weight Reported by Patient Measurement Method Physical Exam: General Appearance Alert, Oriented X3, Cooperative, No Acute Distress Skin No Rashes, No Breakdown Skin Temp/Moisture Exam: Warm/Dry Neck Supple, No JVD, +2 Carotid Pulse wo Bruit Cardiovascular Regular Rate, Normal S1, Normal S2, 2/6 systolic ejection murmur Lungs Clear to Auscultation and percussion bilaterally with slightly decreased breath sounds noted at the left base Abdomen Normal Bowel Sounds, Soft, No Tenderness, No Masses Neurological Normal Speech, Strength at 5/5 X4 Ext, Normal Tone, Sensation Intact Extremities No Edema, Normal Pulses, No Tenderness/Swelling Vascular Normal Pulses, Pulses Symmetrical Labs/Kalen Results: Laboratory Tests 09/01 08/31 08/31 08/31 0631 1505 0950 0615 Chemistry Sodium (137 - 145 mmol/L) 143 138 Potassium (3.5 - 5.1 mmol/L) 4.8 4.4 Chloride (98 - 107 mmol/L) 110 H 105 Carbon Dioxide (22 - 30 mmol/L) 23 18 L Anion Gap (5 - 16) 10 15 BUN (7 - 17 mg/dL) 59 H 59 H Creatinine (0.5 - 1.0 mg/dL) 2.4 H 2.5 H Estimated GFR (>60 ml/min) 19 L 18 L BUN/Creatinine Ratio (7 - 25 %) 24.6 23.6 Lactic Acid (0.7 - 2.1 mmol/L) 1.7 3.4 H Hematology CBC w Diff NO MAN DIFF REQ WBC (4.8 - 10.8 /CUMM) 4.7 L RBC (4.20 - 5.40 /CUMM) 3.73 L Hgb (12.0 - 16.0 G/DL) 9.3 L Hct (37 - 47 %) 28.9 L MCV (81.0 - 99.0 FL) 77.4 L MCH (27.0 - 31.0 PG) 25.0 L RDW (11.5 - 14.5 %) 25.6 H Plt Count (130 - 400 /CUMM) 143 MPV (7.4 - 10.4 FL) 9.9 Gran % (42.2 - 75.2 %) 72.9 Lymphocytes % (20.5 - 51.1 %) 13.4 L Monocytes % (1.7 - 9.3 %) 11.2 H Eosinophils % (0 - 5 %) 1.8 Basophils % (0.0 - 2.0 %) 0.7 Absolute Granulocytes (1.4 - 6.5 /CUMM) 3.4 Absolute Lymphocytes (1.2 - 3.4 /CUMM) 0.6 L Absolute Monocytes (0.10 - 0.60 /CUMM) 0.5 Absolute Eosinophils (0.0 - 0.7 /CUMM) 0.1 Absolute Basophils (0.0 - 0.2 /CUMM) 0 PUBS MCHC (33.0 - 37.0 G/DL) 32.3 L 08/31 08/31 0615 0516 Chemistry Sodium (137 - 145 mmol/L) 139 Potassium (3.5 - 5.1 mmol/L) 5.1 Chloride (98 - 107 mmol/L) 107 Carbon Dioxide (22 - 30 mmol/L) 15 L Anion Gap (5 - 16) 17 H BUN (7 - 17 mg/dL) 71 H Creatinine (0.5 - 1.0 mg/dL) 2.8 H Estimated GFR (>60 ml/min) 16 L BUN/Creatinine Ratio (7 - 25 %) 25.4 H Hematology CBC w Diff NO MAN DIFF REQ WBC (4.8 - 10.8 /CUMM) 5.8 RBC (4.20 - 5.40 /CUMM) 3.92 L Hgb (12.0 - 16.0 G/DL) 9.8 L Hct (37 - 47 %) 30.8 L MCV (81.0 - 99.0 FL) 78.7 L MCH (27.0 - 31.0 PG) 25.1 L RDW (11.5 - 14.5 %) 26.5 H Plt Count (130 - 400 /CUMM) 166 MPV (7.4 - 10.4 FL) 10.8 H Gran % (42.2 - 75.2 %) 73.4 Lymphocytes % (20.5 - 51.1 %) 13.8 L Monocytes % (1.7 - 9.3 %) 10.8 H Eosinophils % (0 - 5 %) 1.5 Basophils % (0.0 - 2.0 %) 0.5 Absolute Granulocytes (1.4 - 6.5 /CUMM) 4.3 Absolute Lymphocytes (1.2 - 3.4 /CUMM) 0.8 L Absolute Monocytes (0.10 - 0.60 /CUMM) 0.6 Absolute Eosinophils (0.0 - 0.7 /CUMM) 0.1 Absolute Basophils (0.0 - 0.2 /CUMM) 0 PUBS MCHC (33.0 - 37.0 G/DL) 31.9 L Urines Urine Color (YEL,AMB,STR) YEL Urine Clarity (CLEAR) CLEAR Urine pH (5.0 - 8.0) 6.0 Ur Specific Brewster (1.001 - 1.035) 1.010 Urine Protein (NEG,<30 MG/DL) 30 H Urine Ketones (NEG) NEG Urine Nitrite (NEG) NEG Urine Bilirubin (NEG) NEG Urine Urobilinogen (0.1 - 1.0 EU/dl) 0.2 Ur Leukocyte Esterase (NEG) NEG Ur Microscopic SEDIMENT EXAMINED Urine WBC (0 - 2 /HPF) 1-3 H Ur Epithelial Cells (NONE,FEW) FEW Urine Bacteria (NEG/NONE) MOD H Urine Hemoglobin (NEG) NEG Urine Glucose (N MG/DL) NEG 08/31 08/31 0321 0015 Chemistry Sodium (137 - 145 mmol/L) 138 Potassium (3.5 - 5.1 mmol/L) 5.6 H Chloride (98 - 107 mmol/L) 104 Carbon Dioxide (22 - 30 mmol/L) 17 L Anion Gap (5 - 16) 17 H BUN (7 - 17 mg/dL) 69 H Creatinine (0.5 - 1.0 mg/dL) 3.3 H Estimated GFR (>60 ml/min) 13 L BUN/Creatinine Ratio (7 - 25 %) 20.9 Glucose (65 - 99 mg/dL) 95 Lactic Acid Cancelled Calcium (8.4 - 10.2 mg/dL) 8.6 Magnesium (1.6 - 2.3 mg/dL) 1.4 L Total Bilirubin (0.2 - 1.3 mg/dL) 0.3 AST (14 - 36 U/L) 17 ALT (9 - 52 U/L) 32 Alkaline Phosphatase (<127 U/L) 52 Troponin I (< 0.11 ng/ml) 0.01 Total Protein (6.3 - 8.2 g/dL) 6.9 Albumin (3.5 - 5.0 g/dL) 4.5 Globulin (1.9 - 4.2 gm/dL) 2.4 Albumin/Globulin Ratio (1.1 - 2.2 %) 1.9 Hematology CBC w Diff NO MAN DIFF REQ WBC (4.8 - 10.8 /CUMM) 7.4 RBC (4.20 - 5.40 /CUMM) 4.06 L Hgb (12.0 - 16.0 G/DL) 10.1 L Hct (37 - 47 %) 31.5 L MCV (81.0 - 99.0 FL) 77.5 L MCH (27.0 - 31.0 PG) 24.9 L RDW (11.5 - 14.5 %) 26.4 H Plt Count (130 - 400 /CUMM) 187 MPV (7.4 - 10.4 FL) 10.0 Gran % (42.2 - 75.2 %) 84.5 H Lymphocytes % (20.5 - 51.1 %) 6.4 L Monocytes % (1.7 - 9.3 %) 8.3 Eosinophils % (0 - 5 %) 0.6 Basophils % (0.0 - 2.0 %) 0.2 Absolute Granulocytes (1.4 - 6.5 /CUMM) 6.2 Absolute Lymphocytes (1.2 - 3.4 /CUMM) 0.5 L Absolute Monocytes (0.10 - 0.60 /CUMM) 0.6 Absolute Eosinophils (0.0 - 0.7 /CUMM) 0 Absolute Basophils (0.0 - 0.2 /CUMM) 0 PUBS MCHC (33.0 - 37.0 G/DL) 32.1 L Diagnostic Data EKG Results Normal sinus rhythm; left atrial abnormality; right bundle-branch block; nonspecific ST-T changes; left axis deviation; possible LVH CXR Results FINDINGS: Median sternotomy wires appear intact. The lungs are well expanded. No edema. Evaluation at the left base is limited due to prominence of the cardiac silhouette. No pleural effusion. No pneumothorax. No definite consolidation. No acute osseous abnormality. IMPRESSION: Prominent cardiac silhouette which limits evaluation at the left base. No edema. Assessment/Plan Assessment/Plan Assessment: 1. Atrial arrhythmias. The patient has a history of atrial ectopy. Review of the monitor tracings here Sami show PACs but no evidence of MAT or atrial fibrillation. She does have underlying conduction system disease with a right bundle branch block. Apparently during her recent admission to [facility], there was no evidence of atrial fibrillation but there was a suggestion of multifocal atrial tachycardia. It was decided not to anticoagulate her at that time based on that data. At the moment I see no indication to change that plan. 2. Acute renal insufficiency 3. Diabetes with hypoglycemia 4. History of bioprosthetic aortic valve 5. History of mild cardiomyopathy with last ejection fraction 50-55%. History of diastolic dysfunction. History of inferolateral and apical hypo-to akinesia. -, Etiology of the aforementioned abnormalities unclear since the patient reportedly had no coronary artery disease at the time of her catheterization prior to the valve replacement. Unlikely interval development of coronary disease. Possible stress cardiomyopathy. 6. History of mild pulmonary hypertension 7. History of COPD Recommendations: -Continue current management as per the medical team. -Continue to hold any nephrotoxic medications including the lisinopril. -Continue to monitor her intakes, outputs, and daily weights. -Follow-up laboratories in the morning to reassess creatinine, etc. -I see no indication for anticoagulation at the present time. -Please keep the patient on the oracle architect for now -Consider a follow-up echocardiogram to reassess left ventricular function and wall motion in view of the recent wall motion abnormalities of unclear etiology. Consult Acknowledgment - Thank you for your consult request.
--- NOTE | 2016-09-01 11:51 | PN- Housestaff ---
THEODORA CARDOSO,MORGAN 09/01/16 1114: Subjective Follow-up For: #1. Hypoglycemia #2. Acute kidney injury #3. Hyperkalemia #4. CAD #5. COPD Complaints: pain scale (0-10) Tele-Events Since Last Visit: Patient was in afib rates 67-74 no events Subjective: Patient was seen and examined bedside. She states that she feels good, the same as yesterday. She denies shortness of breath orthopnea chest pain dizziness and vomiting urinary symptoms. She admits to diarrhea yesterday until the afternoon. Review of Systems Constitutional: Reports: no symptoms. EENTM: Reports: no symptoms. Cardiovascular: Reports: no symptoms. Respiratory: Reports: no symptoms. Gastrointestinal: Reports: diarrhea. Genitourinary: Reports: no symptoms. Musculoskeletal: Reports: no symptoms. Skin: Reports: no symptoms. Neurological/Psychological: Reports: no symptoms. Hematologic/Endocrine: Reports: no symptoms. Immunologic/Allergic: Reports: no symptoms. Objective Last 24 Hrs of Vital Signs/I&O Vital Signs Date Time Temp Pulse Resp B/P B/P Pulse O2 O2 Flow FiO2 Mean Ox Delivery Rate 09/01 0956 98 Nasal 2.0L Cannula 09/01 0835 Nasal 2.0L Cannula 09/01 0818 75 128/72 09/01 0650 97.9 75 18 128/72 97 Nasal Cannula 09/01 0000 Nasal 2.0L Cannula 08/31 2316 98.6 93 20 148/78 97 Nasal Cannula 08/31 2141 Nasal 2.0L Cannula 08/31 2122 96 140/78 08/31 1600 97 Nasal 2.0L Cannula 08/31 1452 98.2 68 18 140/64 97 Nasal 2.0L Cannula 08/31 1247 82 144/68 Intake & Output 09/01 1600 09/01 0800 09/01 0000 Intake Total 100 820 Output Total 900 Balance -800 820 Intake, IV 400 Intake, Oral 100 420 Output, Urine 900 Physical Exam General Appearance: Alert, Oriented X3, Cooperative, No Acute Distress Skin: No Rashes, No Breakdown, No Significant Lesion Skin Temp/Moisture Exam: Warm/Dry Sepsis Skin Exam (color): Normal for Ethnicity HEENT: Atraumatic, PERRLA, EOMI, Mucous Membr. moist/pink Neck: Supple Cardiovascular: Regular Rate, Normal S1, Normal S2, Gallops, Rubs, 3/6 systolic murmur best heard at right upper sternal border Lungs: Clear to Auscultation, Normal Air Movement Abdomen: Normal Bowel Sounds, Soft, No Tenderness, No Masses Neurological: Normal Speech Extremities: No Clubbing, No Cyanosis, No Edema, Normal Pulses, No Tenderness/ Swelling Vascular: Normal Pulses, Pulses Symmetrical Sepsis Peripheral Pulse Location: Radial Sepsis Peripheral Pulse Exam: Normal Current Medications: Current Medications Sig/Elicia Start time Last Medication Dose Route Stop Time Status Admin Acetaminophen 650 MG Q6P PRN 08/31 0430 AC PO Aspirin Buffered 81 MG DAILY 08/31 1000 AC 09/01 PO 0818 Budesonide 0.5 MG DAILY 08/31 1900 AC 09/01 INH 0951 Diltiazem HCl 360 MG DAILY 08/31 1000 AC 09/01 PO 0817 Heparin Sodium 5,000 UNIT Q8 08/31 0600 AC 09/01 (Porcine) SC 0600 Insulin Aspart 0 TIDAC 08/31 0800 08/31 SC 1741 Magnesium Sulfate 1 GM ONCE ONE 08/31 0730 NE 08/31 Dextrose/Water 100 ML IV 08/31 1129 0903 Metoprolol Tartrate 25 MG BID 08/31 1000 AC 09/01 PO 0818 Omeprazole 40 MG DAILY AC 08/31 0700 AC 09/01 PO 0817 Patient Medication 1 ED .STK-MED ONE 08/31 1414 NE Teaching ED 08/31 1415 Pravastatin Sodium 80 MG 1700 08/31 1700 AC 08/31 PO 1741 Sodium Chloride 1,000 ML Q13H 09/01 1015 IV Sodium Chloride 2 SPRAY Q4P PRN 08/31 2130 AC ARIANE 09/07 2119 Sodium Chloride 1,000 ML Q20H 08/31 0730 DC 08/31 IV 08/31 2049 0904 Last 24 Hrs of Lab/Kalen Results Last 24 Hrs of Labs/Mics: Laboratory Tests 09/01/16 0631: Anion Gap 10, Estimated GFR 19 L, BUN/Creatinine Ratio 24.6, CBC w Diff NO MAN DIFF REQ, RBC 3.73 L, MCV 77.4 L, MCH 25.0 L, RDW 25.6 H, MPV 9.9, Gran % 72.9, Lymphocytes % 13.4 L, Monocytes % 11.2 H, Eosinophils % 1.8, Basophils % 0.7, Absolute Granulocytes 3.4, Absolute Lymphocytes 0.6 L, Absolute Monocytes 0.5, Absolute Eosinophils 0.1, Absolute Basophils 0, PUBS MCHC 32.3 L 08/31/16 1505: Anion Gap 15, Estimated GFR 18 L, BUN/Creatinine Ratio 23.6 Orders Fingersticks (last 24 hrs): 135 at 0752 93 at 2318 236 at 1626 28 at 1220 EKG Findings: Normal sinus rhythm right bundle branch block yesterday, now afib. ECHO Findings: Records were obtained from her recent echocardiogram in July 2016 which showed a normal left ejection fraction of 55% but moderate diastolic dysfunction. Radiology Findings: Chest x-ray shows no edema Miscellaneous Findings: Renal kidney ultrasound showed no evidence of upper urinary tract obstruction but a relatively echogenic bilaterally as he be seen in medical renal disease Lines/Diet/Fluids Fluids/Infusions: normal saline 1 L at a rate of 75 milliliters per hour Lines: peripheral lines Assessment/Plan Assessment: Assessment 86 year old female with past medical history of 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 Her blood glucose was 32 at home and was found to be 52 by EMS. She also had a 3 day history of diarrhea and vomiting 1 day. In the ED she was found to have elevated creatinine and hyperkalemia to 5.6. Patient was given Kayexalate in the emergency room and no fluids as history of CHF is uncertain. She was admitted to the telemetry floor for monitoring because of her hyperkalemia and history of paroxysmal atrial fibrillation. * Hypoglycemic event with history of diabetes * Hyperkalemia * Paroxysmal atrial fibrillation not on anticoagulation * Acute kidney injury with questionable history of CKD * Anemia * Hypertension * COPD * History of CAD Plan Hypoglycemia: * Monitor blood glucose Accu-Cheks every 8 hours. * Hold oral hypoglycemics metformin and glipizide and use sliding scale insulin coverage * Endocrinology saw patient and we have started nateglinide 60 mg tid. Sliding scale NovoLog should start with the sugar above 200 that we can observe the effects of the nateglinide. Therefore would change sliding-scale NovoLog to be less than 200 give no insulin, 201-250 give 2 units NovoLog, 251-300 give 3 units NovoLog, 301-350 give 4 units NovoLog, 351-400 give 5 units NovoLog. * Give D5 normal saline if patient becomes hypoglycemic Hyperkalemia * Likely secondary to acute renal failure * Continue to monitor patient on telemetry * Was given Kayexalate in the ED which causes diarrhea, further depleting her volume. * Currently potassium is 4.8 * Monitor electrolytes. Paroxysmal atrial fibrillation * Cardiology saw her today. The patient has a history of atrial ectopy. Review of the monitor tracings hereshow PACs but no evidence of MAT or atrial fibrillation. She does have underlying conduction system disease with a right bundle branch block. During her recent admission to [facility], there was no evidence of atrial fibrillation but there was a suggestion of multifocal atrial tachycardia. It was decided not to anticoagulate her at that time based on that data in cardiology here has decided not to change this plan. * Patient is on Cardizem but not on anticoagulation even though her CHADSVASC score warrants it. Due to her renal failure we need to be careful in taking the correct anticoagulant. * Check a 12-lead. * Recent will need a follow-up echocardiogram to reassess left ventricular function and wall motion abnormalities Acute kidney injury probably due to dehydration with questionable chronic kidney disease * Patient is quite dehydrated as is evidenced by her physical exam. This is likely contributed to her acute kidney injury. Patient was not given any fluids in the ED because of her unknown congestive heart failure status. Records were obtained from her recent echocardiogram in July 2016 which showed a normal left ejection fraction of 55% but moderate diastolic dysfunction. Currently she is being rehydrated with normal saline 75 an hour. * Chest x-ray shows prominent cardiac silhouette which limits evaluation at the left base, no edema. Physical exam shows clear lungs and she is satting 97% oxygen on room air. * Chest around renal/kidney done today shows no evidence of upper urinary tract obstruction but nonspecific evidence of renal disease * Urinalysis is normal except for some urine protein, and a moderate amount of bacteria. Specific gravity is normal at 1.01. Leukocyte esterase is negative signifying no urinary tract infection with Escherichia coli however this cannot rule out urinary tract infection with another bacteria species. * Patient's creatinine here was 3.3 in the ED, and is now 2.8. Trending down. * Lactic acid was 3.4 now is 1.7, trending down. Likely due to dehydration. * Patient's normal creatinine has been between 1.09 and 1.45 during the previous month when she was admitted to [facility], mild chronic kidney disease. * Hold potentially nephrotoxic drugs including her home metformin and lisinopril , avoid NSAIDs. Hold glipizide as well as it is renally cleared and patients with low renal clearance will retain it which will lead to persistent hypoglycemia. * As patient is severely dehydrated and has been having diarrhea, check stool for C. difficile. Anemia * Patient had hemoglobins from 7.7-8.5 on her last admission to [facility]. Now her hemoglobins are in the low nines. * Possibly due to renal failure. * No symptoms of anemia currently. * We expect her hemoglobin to slightly decreased on hydration due to dilution. * Patient is on home ferrous sulfatecan continue COPD * Is currently in no respiratory distress * Can continue on supplemental oxygen as needed CAD and Hypertension * Aspirin, pravastatin 80 mg, Cardizem 360 mg by mouth daily, Lopressor 25 mg by mouth 2 times a day CODE STATUS: Full Heart healthy diet DVT prophylaxis: Heparin 5000 units subcutaneous every 8 hours Problem List: 1. Renal failure 2. Hypoglycemia 3. Hyperkalemia 4. Acute on chronic renal failure Pain Ratin Pain Location: NA Pain Goal: Remain pain free Pain Plan: NA Tomorrow's Labs & Rationales: CBC, BEP DVT/Prophylaxis: pharmacological KAYLAN PRATT MD 09/01/167: Attending MD Review Statement Attending Statement Attending MD Statement: examined this patient, discuss w/resident/PA/MEDIA MARKETING SPECIALIST, agreed w/resident/PA/MEDIA MARKETING SPECIALIST, discussed with family, reviewed EMR data (avail), discussed with nursing, discussed with case mgmt, amended to note Attending Assessment/Plan: The patient was seen and discussed with house staff, nursing, case management and her 2 sons. Creatinine improving with IV hydration, however still appears volume depleted. Her baseline Cr was 1.5 at [facility]. H/H decreasing due to dilution. Cardiology & Endocrinology input appreciated. No anticoagulation needed. Oral agent as per Endocrinology. Avoiding Metformin/Glyburide. Note- patient does not want insulin at home so will assess glucoscans tomorrow. PT states OK for home care discharge. If creatinine decreased and sugars stable on new oral agent consider discharge tomorrow.
--- NOTE | 2016-09-01 12:23 | Cons- Endocrinology ---
General Information and HPI Consulting Request Date of Consult: 09/01/16 Requested By: medical team Reason for Consult: Uncontrolled diabetes and hypoglycemia Source of Information: patient, family, old records Exam Limitations: no limitations History of Present Illness: This 86-year-old woman has a long-standing history of diabetes mellitus type 2. She was recently in [facility] because of congestive heart failure. She also has had some diarrhea. Prior to admission she had episodes of nausea and vomiting. Her diabetes was being treated at home with glyburide 5 mg once a day and metformin thousand milligrams twice a day. The patient denies any diabetic eye disease. The patient presented with on chronic kidney disease. According to her son and her creatinine was 1.3 when she was in [facility]. She was brought to the emergency room at [facility] because of confusion and weakness. She was found to have a low blood sugar at home which her son says was 37 by fingerstick. Her creatinine on the day of admission was 3.3 and is presently down to 2.4. The patient states she is eating well. She has had no nausea or vomiting since coming to the hospital. Allergies/Medications Allergies: Coded Allergies: No Known Allergies (08/31/16) Home Med List: Aspirin (Ecotrin*) 81 MG TABLET.DR 1 TAB PO DAILY HEART HEALTH (Reported) Budesonide 0.5 MG/2 ML AMPUL.NEB 1 AMP INH/JOSIAH DAILY COPD (Reported) Diltiazem HCl (Cardizem Cd) 360 MG CAP.ER.24H 1 CAP PO DAILY HEART HEALTH ( Reported) Ferrous Sulfate 325 MG (65 MG IRON) TABLET 1 TAB PO BID ANEMIA (Reported) Furosemide 40 MG TABLET 1 TAB PO QAM DIURETIC (Reported) Glyburide 5 MG TABLET 1 TAB PO QAM DIABETES (Reported) Irbesartan 300 MG TABLET 1 TAB PO DAILY HIGH BLOOD PRESSURE (Reported) Metformin HCl 1,000 MG TABLET 1 TAB PO BID DIABETES (Reported) Metoprolol Tartrate 25 MG TABLET 1 TAB PO BID HEART HEALTH (Reported) Pantoprazole Sodium 40 MG TABLET.DR 1 TAB PO BID ACID REFLUX (Reported) Pravastatin Sodium 80 MG TABLET 1 TAB PO QPM HIGH CHOLESTROL (Reported) Current Medications: Current Medications Sig/Elicia Start time Last Medication Dose Route Stop Time Status Admin Acetaminophen 650 MG Q6P PRN 08/31 0430 AC PO Aspirin Buffered 81 MG DAILY 08/31 1000 AC 09/01 PO 0818 Budesonide 0.5 MG DAILY 08/31 1900 AC 09/01 INH 0951 Diltiazem HCl 360 MG DAILY 08/31 1000 AC 09/01 PO 0817 Heparin Sodium 5,000 UNIT Q8 08/31 0600 AC 09/01 (Porcine) SC 0600 Insulin Aspart 0 TIDAC 08/31 0800 AC 08/31 SC 1741 Metoprolol Tartrate 25 MG BID 08/31 1000 AC 09/01 PO 0818 Omeprazole 40 MG DAILY AC 08/31 0700 AC 09/01 PO 0817 Patient Medication 1 ED .STK-MED ONE 08/31 1414 MS Teaching ED 08/31 1415 Pravastatin Sodium 80 MG 1700 08/31 1700 AC 08/31 PO 1741 Sodium Chloride 1,000 ML Q13H 09/01 1015 AC IV Sodium Chloride 2 SPRAY Q4P PRN 08/31 2130 AC ARIANE 09/07 2119 Sodium Chloride 1,000 ML Q20H 08/31 0730 DC 08/31 IV 08/31 2049 0904 Review of Systems Review of Systems Constitutional: Denies: chills, fever. Cardiovascular: Denies: chest pain. Respiratory: Denies: short of breath. GI: Denies: nausea, vomiting. Genitourinary: Denies: dysuria. Skin: Reports: no symptoms. Neurological/Psychological: Denies: anxiety, depressed. 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 Home Smoking Status: Former Smoker Functional Ability ADLs Independent: dressing, eating, toileting. Ambulation: independent IADLs Needs Assist: shopping, housework, transportation, medication admin. Exam & Diagnostic Data Last 24 Hrs of Vital Signs/I&O Vital Signs Date Time Temp Pulse Resp B/P B/P Pulse O2 O2 Flow FiO2 Mean Ox Delivery Rate 09/01 0956 98 Nasal 2.0L Cannula 09/01 0835 Nasal 2.0L Cannula 09/01 0818 75 128/72 09/01 0650 97.9 75 18 128/72 97 Nasal Cannula 09/01 0000 Nasal 2.0L Cannula 08/31 2316 98.6 93 20 148/78 97 Nasal Cannula 08/31 2141 Nasal 2.0L Cannula 08/31 2121 96 140/78 08/31 1600 97 Nasal 2.0L Cannula 08/31 1452 98.2 68 18 140/64 97 Nasal 2.0L Cannula 08/31 1247 82 144/68 Intake & Output 09/01 0809/01 0000 Intake Total 100 820 Output Total 900 Balance -800 820 Intake, IV 400 Intake, Oral 100 420 Output, Urine 900 Vital Signs Date Time Temp Pulse Resp B/P B/P Pulse O2 O2 Flow FiO2 Mean Ox Delivery Rate 09/01 0956 98 Nasal 2.0L Cannula 09/01 0835 Nasal 2.0L Cannula 09/01 0818 75 128/72 09/01 0650 97.9 75 18 128/72 97 Nasal Cannula 09/01 0000 Nasal 2.0L Cannula 08/31 2316 98.6 93 20 148/78 97 Nasal Cannula 08/31 2141 Nasal 2.0L Cannula 08/31 2121 96 140/78 08/31 1600 97 Nasal 2.0L Cannula 08/31 1452 98.2 68 18 140/64 97 Nasal 2.0L Cannula 08/31 1247 82 144/68 Intake & Output 09/01 0809/01 0000 Intake Total 100 820 Output Total 900 Balance -800 820 Intake, IV 400 Intake, Oral 100 420 Output, Urine 900 Physical Exam General Appearance: alert, awake, comfortable Head: normal appearance Eyes: Bilateral: normal appearance. Neck: normal inspection Respiratory: normal breath sounds, no respiratory distress Cardiovascular: regular rate/rhythm Gastrointestinal: normal bowel sounds, soft, non-tender Extremities: normal inspection Labs/Kalen Results: Laboratory Tests 09/01 08/31 0631 1505 Chemistry Sodium (137 - 145 mmol/L) 143 138 Potassium (3.5 - 5.1 mmol/L) 4.8 4.4 Chloride (98 - 107 mmol/L) 110 H 105 Carbon Dioxide (22 - 30 mmol/L) 23 18 L Anion Gap (5 - 16) 10 15 BUN (7 - 17 mg/dL) 59 H 59 H Creatinine (0.5 - 1.0 mg/dL) 2.4 H 2.5 H Estimated GFR (>60 ml/min) 19 L 18 L BUN/Creatinine Ratio (7 - 25 %) 24.6 23.6 Hematology CBC w Diff NO MAN DIFF REQ WBC (4.8 - 10.8 /CUMM) 4.7 L RBC (4.20 - 5.40 /CUMM) 3.73 L Hgb (12.0 - 16.0 G/DL) 9.3 L Hct (37 - 47 %) 28.9 L MCV (81.0 - 99.0 FL) 77.4 L MCH (27.0 - 31.0 PG) 25.0 L RDW (11.5 - 14.5 %) 25.6 H Plt Count (130 - 400 /CUMM) 143 MPV (7.4 - 10.4 FL) 9.9 Gran % (42.2 - 75.2 %) 72.9 Lymphocytes % (20.5 - 51.1 %) 13.4 L Monocytes % (1.7 - 9.3 %) 11.2 H Eosinophils % (0 - 5 %) 1.8 Basophils % (0.0 - 2.0 %) 0.7 Absolute Granulocytes (1.4 - 6.5 /CUMM) 3.4 Absolute Lymphocytes (1.2 - 3.4 /CUMM) 0.6 L Absolute Monocytes (0.10 - 0.60 /CUMM) 0.5 Absolute Eosinophils (0.0 - 0.7 /CUMM) 0.1 Absolute Basophils (0.0 - 0.2 /CUMM) 0 PUBS MCHC (33.0 - 37.0 G/DL) 32.3 L Assessment/Plan Assessment/Plan This patient presented with a hypoglycemic episode probably related to the glyburide that she was taking at home in the in the presence of acute renal failure. Because she has acute superimposed on chronic renal disease the patient and no longer be on metformin and should not take glyburide any further. At the present time she is on low dose sliding scale NovoLog before meals and no background insulin. Her blood sugar this morning was 135 and she receives no NovoLog coverage. Before lunch it is now 248. I suggest that we try the patient on nateglinide 60 mg 3 times a day before meals. In addition we can maintain sliding-scale NovoLog until we see how the nateglinide is working. Sliding scale NovoLog should start with the sugar above 200 that we can observe the effects of the nateglinide. Therefore would change sliding-scale NovoLog to be less than 200 give no insulin, 201-250 give 2 units NovoLog, 251-300 give 3 units NovoLog, 301-350 give 4 units NovoLog, 351-400 give 5 units NovoLog. If the nateglinide is not effective we may need to design and insulin regimen for this patient. Consult Acknowledgment - Thank you for your consult request.
[2016-09-01 15:06] VITALS: BP 120/60
--- NOTE | 2016-09-01 16:54 | Patient Discharge Instructions ---
Discharge Instructions General Discharge Information You were seen/treated for: HYPOGLYCEMIA ACUTE ON CHRONIC KIDNEY DISEASE HYPERKALEMIA Special Instructions: 1. PLEASE F/U WITH YOUR PCP WITHIN 1 WEEK OF DISCHARGE. 2. Follow up with Dr. Escobar in 2 weeks to evaluate whether diuretic therapy needs to be restarted. 3. PLEASE F/U WITH [facility] WITHIN 1 WEEK OF DISCHARGE. Diet Recommended Diet: Diabetic, Regular no added salt Activity Full Activity/No Limits: Yes ( TOLERATED) Acute Coronary Syndrome Inclusion Criteria At DC or during hospital stay patient has or had the following: ACS DIAGNOSIS No Discharge Core Measures Meds if any: Prescribed or Continued at Discharge Meds if any: NOT Prescribed or Continued at Discharge Congestive Heart Failure Inclusion Criteria At DC or during hospital stay patient has or had the following: CHF DIAGNOSIS No Discharge Core Measures Meds if any: Prescribed or Continued at Discharge Meds if any: NOT Prescribed or Continued at Discharge Cerebrovascular accident Inclusion Criteria At DC or during hospital stay patient has or had the following: CVA/TIA Diagnosis No Discharge Core Measures Meds if any: Prescribed or Continued at Discharge Meds if any: NOT Prescribed or Continued at Discharge Venous thromboembolism Inclusion Criteria VTE Diagnosis No VTE Type NONE VTE Confirmed by (Test) NONE Discharge Core Measures - Per Current guidelines, there needs to be overlap - treatment for the first 5 days of Warfarin therapy. - If discharged on Warfarin prior to 5 days of - overlap therapy, the patient will need to be - assessed for post discharge needs including - *Post discharge parental anticoagulation - *Warfarin and/or parental anticoagulation education - *Follow up date to check INR post discharge At least 5 days overlap therapy as Inpatient No Meds if any: Prescribed or Continued at Discharge Note: Overlap Therapy is Warfarin and Anticoagulant Meds if any: NOT Prescribed or Continued at Discharge
[2016-09-02 06:46] VITALS: BP 142/66
--- NOTE | 2016-09-02 09:05 | PN- Diabetes ---
Assessment/Plan Assessment: The patient states she feels well. She is eating okay. He is presently on nateglinide 60 mg 3 times a day before each meal as well as sliding scale NovoLog which starts with the sugar over 200. Patient's fingerstick blood sugar this morning is 134. The patient's serum creatinine is down to 2.1 today. Plan: I would continue the patient on the nateglinide at the present dose and the sliding-scale NovoLog if his sugar chisel level of over 200. We can observe the effects of the nateglinide today. If his sugars are doing well we will be able to stop the NovoLog by tomorrow morning. Subjective Subjective: Feels improved Review of Systems Constitutional: Denies: chills, fever. Cardiovascular: Denies: chest pain. Respiratory: Denies: short of breath. Gastrointestinal: Denies: abdominal pain, vomiting. Skin: Reports: no symptoms. Objective Last 24 Hrs of Vital Signs/I&O Vital Signs Date Time Temp Pulse Resp B/P B/P Pulse O2 O2 Flow FiO2 Mean Ox Delivery Rate 09/02 0646 98.6 55 20 142/66 95 Nasal Cannula 09/02 0000 93 Nasal 2.0L Cannula 09/019 99.0 62 20 95 Nasal 2.0L Cannula 09/01 2104 65 138/58 09/01 1506 98.7 52 18 120/60 100 Nasal 2.0L Cannula 09/01 0956 98 Nasal 2.0L Cannula Intake & Output 09/02 1600 09/02 0800 09/02 0000 Intake Total 840 750 Output Total 1100 950 Balance -260 -200 Intake, IV 600 300 Intake, Oral 240 450 Output, Urine 1100 950 Vital Signs Date Time Temp Pulse Resp B/P B/P Pulse O2 O2 Flow FiO2 Mean Ox Delivery Rate 09/02 0646 98.6 55 20 142/66 95 Nasal Cannula 09/02 0000 93 Nasal 2.0L Cannula 09/01 2229 99.0 62 20 95 Nasal 2.0L Cannula 09/015 65 138/58 09/01 1506 98.7 52 18 120/60 100 Nasal 2.0L Cannula 09/01 0956 98 Nasal 2.0L Cannula Intake & Output 09/02 1600 09/02 0800 09/02 0000 Intake Total 840 750 Output Total 1100 950 Balance -260 -200 Intake, IV 600 300 Intake, Oral 240 450 Output, Urine 1100 950 Physical Exam General Appearance: alert, awake, comfortable Head: normal appearance Neck: normal inspection Respiratory: normal breath sounds Cardiovascular: regular rate/rhythm Abdomen: normal bowel sounds Extremities: normal inspection Current Medications: Current Medications Sig/Elicia Start time Last Medication Dose Route Stop Time Status Admin Acetaminophen 650 MG Q6P PRN 08/31 0430 AC PO Aspirin Buffered 81 MG DAILY 08/31 1000 AC 09/01 PO 0818 Budesonide 0.5 MG DAILY 08/31 1900 AC 09/01 INH 0951 Diltiazem HCl 360 MG DAILY 08/31 1000 AC 09/01 PO 0817 Heparin Sodium 5,000 UNIT Q8 08/31 0600 AC 09/02 (Porcine) SC 0550 Insulin Aspart 0 TIDAC 09/01 1700 AC SC Insulin Aspart 0 TIDAC 08/31 0800 DC 09/01 SC 1238 Metoprolol Tartrate 25 MG BID 08/31 1000 AC 09/01 PO 2105 Nateglinide 60 MG TIDAC 09/01 1700 AC 09/02 PO 0755 Non-Formulary 0 SEE ADMIN CRITERIA 09/01 1445 CAN Medication ANY Omeprazole 40 MG DAILY AC 08/31 0700 AC 09/02 PO 0550 Pravastatin Sodium 80 MG 1700 08/31 1700 AC 09/01 PO 1714 Sodium Chloride 1,000 ML Q13H 09/01 1630 CAN IV 09/02 0529 Sodium Chloride 1,000 ML Q13H 09/01 1015 AC 09/01 IV 2106 Sodium Chloride 2 SPRAY Q4P PRN 08/31 2130 AC ARIANE 09/079 Findings Pertinent Lab/Kalen Results: Laboratory Tests 09/02 0607 Chemistry Sodium (137 - 145 mmol/L) 142 Potassium (3.5 - 5.1 mmol/L) 4.4 Chloride (98 - 107 mmol/L) 112 H Carbon Dioxide (22 - 30 mmol/L) 19 L Anion Gap (5 - 16) 11 BUN (7 - 17 mg/dL) 49 H Creatinine (0.5 - 1.0 mg/dL) 2.1 H Estimated GFR (>60 ml/min) 22 L BUN/Creatinine Ratio (7 - 25 %) 23.3
--- NOTE | 2016-09-02 12:39 | PN- Student ---
Subjective Subjective: Today Ms. Aden says she feels good. No complaints. She has not had diarrhea since the day before yesterday. She denies any shortness of breath or chest pain. Patient was with her son who was curious about when she would be going home. Objective Objective: Vitals T 98.6, HR 55, RR 20, BP 142/66. 95% on 2L nasal cannula Overnight telemetry events Normal sinus rhythm with bundle branch block. Rate 58-75 Physical Exam General: Patient is sitting comfortably in chair eating breakfast in no acute distress CV: Normal S1 S2. 2/6 Systolic murmur noted Lungs: Clear to auscultation bilaterally posteriorly Abdomen: Hernia noted. Abdomen non tender to palpation. Normal active bowel sounds. Legs: No pedal edema. Bruises noted on both shins due to recent fall. Pertinent Labs Cl 112H, CO2 19L, BUN 49H. Creatinine 2.1H, Estimated GFR 22L Fingerstick glucose 0600: 134 1133: 300 Results Results: Laboratory Tests 09/02/16 0607: Anion Gap 11, Estimated GFR 22 L, BUN/Creatinine Ratio 23.3 09/01/16 0631: Anion Gap 10, Estimated GFR 19 L, BUN/Creatinine Ratio 24.6, CBC w Diff NO MAN DIFF REQ, RBC 3.73 L, MCV 77.4 L, MCH 25.0 L, RDW 25.6 H, MPV 9.9, Gran % 72.9, Lymphocytes % 13.4 L, Monocytes % 11.2 H, Eosinophils % 1.8, Basophils % 0.7, Absolute Granulocytes 3.4, Absolute Lymphocytes 0.6 L, Absolute Monocytes 0.5, Absolute Eosinophils 0.1, Absolute Basophils 0, PUBS MCHC 32.3 L 08/31/16 1505: Anion Gap 15, Estimated GFR 18 L, BUN/Creatinine Ratio 23.6 08/31/16 0950: Lactic Acid 1.7 08/31/16 0615: Lactic Acid 3.4 H 08/31/16 0615: Anion Gap 17 H, Estimated GFR 16 L, BUN/Creatinine Ratio 25.4 H, CBC w Diff NO MAN DIFF REQ, RBC 3.92 L, MCV 78.7 L, MCH 25.1 L, RDW 26.5 H, MPV 10.8 H , Gran % 73.4, Lymphocytes % 13.8 L, Monocytes % 10.8 H, Eosinophils % 1.5, Basophils % 0.5, Absolute Granulocytes 4.3, Absolute Lymphocytes 0.8 L, Absolute Monocytes 0.6, Absolute Eosinophils 0.1, Absolute Basophils 0, PUBS MCHC 31.9 L 08/31/16 0533: Urine Color YEL, Urine Clarity CLEAR, Urine pH 6.0, Ur Specific Donaldson 1.010, Urine Protein 30 H, Urine Ketones NEG, Urine Nitrite NEG, Urine Bilirubin NEG, Urine Urobilinogen 0.2, Ur Leukocyte Esterase NEG, Ur Microscopic SEDIMENT EXAMINED, Urine WBC 1-3 H, Ur Epithelial Cells FEW, Urine Bacteria MOD H, Urine Hemoglobin NEG, Urine Glucose NEG 08/31/16 0321: Lactic Acid Cancelled 08/31/16 0015: Anion Gap 17 H, Estimated GFR 13 L, BUN/Creatinine Ratio 20.9, Glucose 95, Calcium 8.6, Magnesium 1.4 L, Total Bilirubin 0.3, AST 17, ALT 32, Alkaline Phosphatase 52, Troponin I 0.01, Total Protein 6.9, Albumin 4.5, Globulin 2.4, Albumin/Globulin Ratio 1.9, CBC w Diff NO MAN DIFF REQ, RBC 4.06 L, MCV 77.5 L , MCH 24.9 L, RDW 26.4 H, MPV 10.0, Gran % 84.5 H, Lymphocytes % 6.4 L, Monocytes % 8.3, Eosinophils % 0.6, Basophils % 0.2, Absolute Granulocytes 6.2, Absolute Lymphocytes 0.5 L, Absolute Monocytes 0.6, Absolute Eosinophils 0, Absolute Basophils 0, PUBS MCHC 32.1 L Microbiology 08/31 48 STOOL: Clostridium difficile Toxin A & B - RES 08/31 48 STOOL: Stool Culture - RES Assessment/Plan Assessment: Ms. Aden is an 86 year old female with past medical history significant for COPD on 2L nasal cannula home oxygen, stage 2 diastolic heart failure, DM II, hypertension, esophageal cancer, and history of aortic valve replacement with bovine valve, who initially presented with hypoglycemia, diarrhea, and signs of dehydration. Today she has no complaints and says she is feeling much better. 1. Hypoglycemia and history of DM II 2. Hyperkalemia 3. Acute Kiney Injury 4. Anemia 5. History of hypertension and CAD 6. History of COPD 7. Questionable history of paroxysmal afib/ questionable afib on overnight telemerty Plan: 1. Hypoglycemia and history of DMII * Hypoglycemia has resolved * Hold oral hypoglycemics. * Give D5NS if patient becomes hypoglycemic. * Patient was seen by endocrinology again today. - Fingerstick glucose was 300 at 1133 and 134 at 0600 - Home metformin to be discontinued due to renal status. - Continue Nateglinide 60mg every 3 hours with Sliding Scale Novolog as below: -200 give no insulin, -201-250 give 2 units NovoLog -251-300 give 3 units NovoLog -301-350 give 4 units NovoLog -351-400 give 5 units NovoLog -Continue to monitor accuchecks TID to observe nateglinide effects. -If sugars are doing well, will be able to stop NovoLog tomorrow. 2. Hyperkalemia * Resolved * Given kayexalate in ED which can perpetuate diarrhea and dehydration. * Last value: 4.8 * Continue monitoring chemistry. 3. Acute Kidney Injury on top of chronic renal failure * Patient is on third 1000ML bag of fluid. * Recheck creatinine levels in A.M. * Last creatinine was 2.1. * Continue to hold any nephrotoxic medications. 4. Anemia * Hb 9.3 today. Hemoglobin was between 7.7 and 8.5 during admission to [facility] 2 weeks ago. * Continnue home Ferrous sulfate. * Hemoglobin may decrease after fluids due to dilutional effect. If drops below 8 may need transfusion. 5. History of hypertension and CAD * Holding Irbesartan until improved renal function * Continue metoprolol 25mg BID. Patients HR was 55 today. Hold if systolic is below 90 or HR is below 50 BPM. * Continue home baby aspirin and pravastatin 80mg. * Continue cardizem 360 daily. 6. History of COPD - in no current respiratory distress * Continue home dose pulmicort. * Continue oxygen 2L nasal cannula. 7. Questionable history of paroxysmal afib/ questionable afib on overnight telemetry * Hand Clerical Verifier determined EKG's from [facility] PAC's but no evidence of MAT or afib. Underlying conduction system disease with a bundle branch block. -Anticoagulants not indicated at this time. -Continue current management. -Continue telemetry monitoring. * Echo pending DVT prophylaxis Heart healthy Diet Code Status: Full
[2016-09-02 14:00] VITALS: BP 120/60
--- NOTE | 2016-09-02 15:44 | Event Note ---
Event Note Event Note: Patient is bradycardiac to HR of 46, she took her 25 mg metoprolol in am. Will hold her metoprolol now and inform night time babysitter. Patient has underlying conduction system disease with a right bundle branch block.
--- NOTE | 2016-09-02 17:05 | NUR ---
NURSING NOTE; PT BRADYCARDIC THIS AFTERNOON. SB 45-60. HR LOW 42. ASYMPTOMATIC. BP 114/48. MD MADE AWARE. STAT EKG DONE. WILL CONTIUE TO MONITOR.
--- NOTE | 2016-09-02 17:42 | PN- Att Addend ---
Attending Addendum Attending Brief Note Patient seen and examined. Plan of care discussed with the medical team and the patient. Available lab work and radiology test reports were reviewed. Patient is found sitting in chair comfortably. She denies any new complaints. She has no recent reported fever chills nausea vomiting or abdominal pain. Vital Signs Date Time Temp Pulse Resp B/P B/P Pulse O2 O2 Flow FiO2 Mean Ox Delivery Rate 09/02 1600 99 Nasal 2.0L Cannula 09/02 1400 98.2 48 20 120/60 99 09/02 1059 99 Nasal 2.0L Cannula 09/02 1009 148/64 09/02 0800 95 Nasal 2.0L Cannula 09/02 0646 98.6 55 20 142/66 95 Nasal Cannula 09/02 0000 93 Nasal 2.0L Cannula 09/01 2229 99.0 62 20 95 Nasal 2.0L Cannula 09/01 2105 65 138/58 Intake & Output 09/02 1600 09/02 0800 09/02 0000 Intake Total 1125 840 750 Output Total 400 1100 950 Balance 725 -260 -200 Intake, IV 525 600 300 Intake, Oral 600 240 450 Output, Urine 400 1100 950 Exam: General: Patient awake alert oriented without any distress CVS: S1 plus S2 without any murmur or gallops Chest: Few scattered crepitation without any wheeze. There is no respiratory distress. Abdomen: Soft nontender, bowel sound present, no guarding or rebound PROGRAM CHECKER: Awake alert oriented without any focal neuro deficit and follows command appropriately Extremities: No edema; no clubbing or cyanosis noted Laboratory Tests 09/02 0607 Chemistry Sodium (137 - 145 mmol/L) 142 Potassium (3.5 - 5.1 mmol/L) 4.4 Chloride (98 - 107 mmol/L) 112 H Carbon Dioxide (22 - 30 mmol/L) 19 L Anion Gap (5 - 16) 11 BUN (7 - 17 mg/dL) 49 H Creatinine (0.5 - 1.0 mg/dL) 2.1 H Estimated GFR (>60 ml/min) 22 L BUN/Creatinine Ratio (7 - 25 %) 23.3 Stool cultures are all negative so far. C. difficile was negative. Assessment * Gastroenteritis acute now improved * Hyperglycemia- patient being followed up by endocrinology * History of COPD * Chronic renal failure; acute and chronic renal failure; creatinine improving Plan * Continue to monitor blood glucose. Continue nateglinide * If her sugars are improved we will consider discharge tomorrow * Prepare discharge paperwork for tomorrow * Increase ambulation
--- NOTE | 2016-09-02 19:32 | PN- Housestaff ---
Subjective Follow-up For: #1. Hypoglycemia #2. Acute kidney injury #3. Hyperkalemia #4. CAD #5. COPD Complaints: no complaints Tele-Events Since Last Visit: Normal sinus rhythm bundle branch block 58-75 no events Subjective: No complaints Review of Systems Constitutional: Reports: no symptoms. Objective Last 24 Hrs of Vital Signs/I&O Vital Signs Date Time Temp Pulse Resp B/P B/P Pulse O2 O2 Flow FiO2 Mean Ox Delivery Rate 09/02 1600 99 Nasal 2.0L Cannula 09/02 1400 98.2 48 20 120/60 99 09/02 1059 99 Nasal 2.0L Cannula 09/02 1009 148/64 09/02 0800 95 Nasal 2.0L Cannula 09/02 0646 98.6 55 20 142/66 95 Nasal Cannula 09/02 0000 93 Nasal 2.0L Cannula 09/01 2229 99.0 62 20 95 Nasal 2.0L Cannula 09/01 2105 65 138/58 Intake & Output 09/02 1600 09/02 0800 09/02 0000 Intake Total 1125 840 750 Output Total 400 1100 950 Balance 725 -260 -200 Intake, IV 525 600 300 Intake, Oral 600 240 450 Output, Urine 400 1100 950 Physical Exam General Appearance: Alert, Oriented X3, Cooperative, No Acute Distress HEENT: Atraumatic, Mucous Membr. moist/pink Cardiovascular: Regular Rate, Normal S1, Normal S2, No Murmurs, Gallops, Rubs Lungs: Clear to Auscultation Extremities: No Edema, Normal Pulses Current Medications: Current Medications Sig/Elicia Start time Last Medication Dose Route Stop Time Status Admin Acetaminophen 650 MG Q6P PRN 08/31 0430 AC PO Aspirin Buffered 81 MG DAILY 08/31 1000 AC 09/02 PO 1009 Budesonide 0.5 MG DAILY 08/31 1900 AC 09/02 INH 1056 Diltiazem HCl 360 MG DAILY 08/31 1000 AC 09/02 PO 1004 Ferrous Sulfate 325 MG DAILY 09/02 1209 AC 09/02 PO 1353 Heparin Sodium 5,000 UNIT Q8 08/31 0600 AC 09/02 (Porcine) SC 1419 Insulin Aspart 0 TIDAC 09/01 1700 AC 09/02 SC 1237 Metoprolol Tartrate 25 MG BID 08/31 1000 DC 09/02 PO 1009 Nateglinide 60 MG TIDAC 09/01 1700 AC 09/02 PO 1727 Omeprazole 40 MG DAILY AC 08/31 0700 AC 09/02 PO 0550 Pravastatin Sodium 80 MG 1700 08/31 1700 AC 09/02 PO 1728 Sodium Chloride 1,000 ML Q13H 09/01 1015 AC 09/01 IV 2106 Sodium Chloride 2 SPRAY Q4P PRN 08/31 2130 AC ARIANE 09/07 2119 Last 24 Hrs of Lab/Kalen Results Last 24 Hrs of Labs/Mics: Laboratory Tests 09/02/16 0607: Anion Gap 11, Estimated GFR 22 L, BUN/Creatinine Ratio 23.3 Orders Fingersticks (last 24 hrs): 134 the morning of 09/02/2016 300 during the afternoon Assessment/Plan Assessment: Assessment 86 year old female with past medical history of 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 Her blood glucose was 32 at home and was found to be 52 by EMS. She also had a 3 day history of diarrhea and vomiting 1 day. In the ED she was found to have elevated creatinine and hyperkalemia to 5.6. Patient was given Kayexalate in the emergency room and no fluids as history of CHF is uncertain. She was admitted to the telemetry floor for monitoring because of her hyperkalemia and history of paroxysmal atrial fibrillation. * Hypoglycemic event with history of diabetes * Hyperkalemia * Paroxysmal atrial fibrillation not on anticoagulation * Acute kidney injury with questionable history of CKD * Anemia * Hypertension * COPD * History of CAD Plan Hypoglycemia: * Monitor blood glucose Accu-Cheks every 8 hours. Morning blood glucose was 134 afternoon blood glucose was 300. * Hold oral hypoglycemics metformin and glipizide and use sliding scale insulin coverage * Endocrinology saw patient and we have started nateglinide 60 mg tid. Sliding scale NovoLog should start with the sugar above 200 that we can observe the effects of the nateglinide. Therefore would change sliding-scale NovoLog to be less than 200 give no insulin, 201-250 give 2 units NovoLog, 251-300 give 3 units NovoLog, 301-350 give 4 units NovoLog, 351-400 give 5 units NovoLog. * Give D5 normal saline if patient becomes hypoglycemic. * Will observe on the nateglinide per Arsh Brown MD and reevaluate. Hyperkalemia * Likely secondary to acute renal failure * Continue to monitor patient on telemetry * Was given Kayexalate in the ED which causes diarrhea, further depleting her volume. * Currently potassium is 4.8 * Monitor electrolytes. Paroxysmal atrial fibrillation * Today patient was bradycardic to 46. She took her 25 mg metoprolol in the morning. We will now hold metoprolol. * Patient is on Cardizem but not on anticoagulation even though her CHADSVASC score warrants it. Due to her renal failure we need to be careful in taking the correct anticoagulant. * Check a 12-lead. * Recent will need a follow-up echocardiogram to reassess left ventricular function and wall motion abnormalities Acute kidney injury probably due to dehydration with questionable chronic kidney disease * Patient is quite dehydrated as is evidenced by her physical exam. This is likely contributed to her acute kidney injury. Patient was not given any fluids in the ED because of her unknown congestive heart failure status. Records were obtained from her recent echocardiogram in July 2016 which showed a normal left ejection fraction of 55% but moderate diastolic dysfunction. Currently she is being rehydrated with normal saline 75 an hour. * Chest x-ray shows prominent cardiac silhouette which limits evaluation at the left base, no edema. Physical exam shows clear lungs and she is satting 97% oxygen on room air. * Chest around renal/kidney done today shows no evidence of upper urinary tract obstruction but nonspecific evidence of renal disease * Urinalysis is normal except for some urine protein, and a moderate amount of bacteria. Specific gravity is normal at 1.01. Leukocyte esterase is negative signifying no urinary tract infection with Escherichia coli however this cannot rule out urinary tract infection with another bacteria species. * Patient's creatinine here was 3.3 in the ED, and is now 2.1. Trending down. * Lactic acid was 3.4 now is 1.7, trending down. Likely due to dehydration. * Patient's normal creatinine has been between 1.09 and 1.45 during the previous month when she was admitted to [facility], mild chronic kidney disease. * Hold potentially nephrotoxic drugs including her home metformin and lisinopril , avoid NSAIDs. Hold glipizide as well as it is renally cleared and patients with low renal clearance will retain it which will lead to persistent hypoglycemia. * As patient is severely dehydrated and has been having diarrhea, check stool for C. difficile. Anemia * Patient had hemoglobins from 7.7-8.5 on her last admission to [facility]. Now her hemoglobins are in the low nines. * Possibly due to renal failure. * No symptoms of anemia currently. * We expect her hemoglobin to slightly decreased on hydration due to dilution. * Patient is on home ferrous sulfatecan continue COPD * Is currently in no respiratory distress * Can continue on supplemental oxygen as needed CAD and Hypertension * Aspirin, pravastatin 80 mg, Cardizem 360 mg by mouth daily, Lopressor 25 mg by mouth 2 times a day CODE STATUS: Full Heart healthy diet DVT prophylaxis: Heparin 5000 units subcutaneous every 8 hours Problem List: 1. Renal failure 2. Hypoglycemia 3. Hyperkalemia 4. Acute on chronic renal failure Pain Ratin Pain Location: none Pain Goal: Remain pain free Pain Plan: . Tomorrow's Labs & Rationales: Continue to monitor glucose status
[2016-09-02 21:39] VITALS: BP 144/54
[2016-09-03 06:30] VITALS: BP 122/66
[2016-09-03 08:33] LABS: ABSOLUTE BASOPHIL COUNT 0 /CUMM (0.0-0.2); ABSOLUTE EOSINOPHIL COUNT 0 /CUMM (0.0-0.7); ABSOLUTE GRANULOCYTE CT 3.9 /CUMM (1.4-6.5); ABSOLUTE LYMPH COUNT 0.6 /CUMM (1.2-3.4); ABSOLUTE MONOCYTE COUNT 0.5 /CUMM (0.10-0.60); BASOPHIL % 0.2 % (0.0-2.0); EOSINOPHIL % 0.9 % (0-5); GRANULOCYTE % 77.1 % (42.2-75.2); HEMATOCRIT 27.6 % (37-47); MEAN CORPUSCULAR HGB 25.4 PG (27.0-31.0); MEAN CORPUSCULAR HGB CONC 32.3 G/DL (33.0-37.0); MEAN CORPUSCULAR VOLUME 78.8 FL (81.0-99.0); MEAN PLATELET VOLUME 10.1 FL (7.4-10.4); PLATELET COUNT 127 /CUMM (130-400); RBC DISTRIBUTION WIDTH 25.2 % (11.5-14.5); RED BLOOD CELL CT 3.51 /CUMM (4.20-5.40); WHITE BLOOD CELL COUNT 5.1 /CUMM (4.8-10.8)
--- NOTE | 2016-09-03 09:18 | PN- Diabetes ---
Assessment/Plan Assessment: The patient states she feels well. She is eating okay. She is presently on nateglinide 60 mg 3 times a day before each meal as well as sliding scale NovoLog which starts with the sugar over 200. Patient's fingerstick blood sugar this morning is 122 . Her blood sugar became high before lunch yesterday at 300. The patient's serum creatinine is down to 1.9 today. Plan: The patient's fasting blood sugars in a good range. Her sugar became very high before lunch yesterday. She was given pancake syrup and autonomic use for breakfast which is a high carbohydrate load. Morning the patient had an omelette and some oatmeal. We will need to observe her blood sugars today before making further changes. The patient's renal function continues to improve. Subjective Subjective: Feels okay Review of Systems Constitutional: Denies: chills, fever. Cardiovascular: Denies: chest pain. Respiratory: Denies: short of breath. Gastrointestinal: Denies: abdominal pain, nausea, vomiting. Genitourinary: Denies: dysuria. Skin: Reports: no symptoms. Objective Last 24 Hrs of Vital Signs/I&O Vital Signs Date Time Temp Pulse Resp B/P B/P Pulse O2 O2 Flow FiO2 Mean Ox Delivery Rate 09/03 0800 100 Nasal 2.0L Cannula 09/03 0630 97.8 75 20 122/66 100 Nasal Cannula 09/03 0000 Nasal 2.0L Cannula 09/02 2138 98.8 59 20 144/54 97 Nasal 2.0L Cannula 09/02 1930 96 Nasal 2.0L Cannula 09/02 1600 99 Nasal 2.0L Cannula 09/02 1400 98.2 48 20 120/60 99 09/02 1059 99 Nasal 2.0L Cannula 09/02 1009 148/64 Intake & Output 09/03 1600 09/03 0800 09/03 0000 Intake Total 100 Output Total 1400 900 Balance -1300 -900 Intake, Oral 100 Output, Urine 1400 900 Vital Signs Date Time Temp Pulse Resp B/P B/P Pulse O2 O2 Flow FiO2 Mean Ox Delivery Rate 09/03 0800 100 Nasal 2.0L Cannula 09/03 0630 97.8 75 20 122/66 100 Nasal Cannula 09/03 0000 Nasal 2.0L Cannula 09/02 2138 98.8 59 20 144/54 97 Nasal 2.0L Cannula 09/02 1930 96 Nasal 2.0L Cannula 09/02 1600 99 Nasal 2.0L Cannula 09/02 1400 98.2 48 20 120/60 99 09/02 1059 99 Nasal 2.0L Cannula 09/02 1009 148/64 Intake & Output 09/03 1600 09/03 0800 09/03 0000 Intake Total 100 Output Total 1400 900 Balance -1300 -900 Intake, Oral 100 Output, Urine 1400 900 Physical Exam General Appearance: alert, awake, comfortable Neck: normal inspection Respiratory: normal breath sounds Cardiovascular: regular rate/rhythm Abdomen: normal bowel sounds Current Medications: Current Medications Sig/Elicia Start time Last Medication Dose Route Stop Time Status Admin Acetaminophen 650 MG Q6P PRN 08/31 0430 AC PO Aspirin Buffered 81 MG DAILY 08/31 1000 AC 09/02 PO 1009 Budesonide 0.5 MG DAILY 08/31 1900 AC 09/02 INH 1056 Diltiazem HCl 360 MG DAILY 08/31 1000 AC 09/02 PO 1004 Ferrous Sulfate 325 MG DAILY 09/02 1209 AC 09/02 PO 1353 Heparin Sodium 5,000 UNIT Q8 08/31 0600 AC 09/03 (Porcine) SC 0604 Insulin Aspart 0 TIDAC 09/01 1700 AC 09/02 SC 1237 Metoprolol Tartrate 25 MG BID 08/31 1000 DC 09/02 PO 1009 Nateglinide 60 MG TIDAC 09/01 1700 AC 09/03 PO 0804 Omeprazole 40 MG DAILY AC 08/31 0700 AC 09/03 PO 0604 Pravastatin Sodium 80 MG 1700 08/31 1700 AC 09/02 PO 1728 Sodium Chloride 1,000 ML Q13H 09/01 1015 AC 09/02 IV 2054 Sodium Chloride 2 SPRAY Q4P PRN 08/31 2130 AC ARIANE 09/07 2118 Findings Pertinent Lab/Kalen Results: Laboratory Tests 09/03 0610 Chemistry Sodium (137 - 145 mmol/L) 145 Potassium (3.5 - 5.1 mmol/L) 4.2 Chloride (98 - 107 mmol/L) 114 H Carbon Dioxide (22 - 30 mmol/L) 20 L Anion Gap (5 - 16) 11 BUN (7 - 17 mg/dL) 40 H Creatinine (0.5 - 1.0 mg/dL) 1.9 H Estimated GFR (>60 ml/min) 25 L BUN/Creatinine Ratio (7 - 25 %) 21.1 Hematology CBC w Diff NO MAN DIFF REQ WBC (4.8 - 10.8 /CUMM) 5.1 RBC (4.20 - 5.40 /CUMM) 3.51 L Hgb (12.0 - 16.0 G/DL) 8.9 L Hct (37 - 47 %) 27.6 L MCV (81.0 - 99.0 FL) 78.8 L MCH (27.0 - 31.0 PG) 25.4 L RDW (11.5 - 14.5 %) 25.2 H Plt Count (130 - 400 /CUMM) 127 L MPV (7.4 - 10.4 FL) 10.1 Gran % (42.2 - 75.2 %) 77.1 H Lymphocytes % (20.5 - 51.1 %) 11.8 L Monocytes % (1.7 - 9.3 %) 10.0 H Eosinophils % (0 - 5 %) 0.9 Basophils % (0.0 - 2.0 %) 0.2 Absolute Granulocytes (1.4 - 6.5 /CUMM) 3.9 Absolute Lymphocytes (1.2 - 3.4 /CUMM) 0.6 L Absolute Monocytes (0.10 - 0.60 /CUMM) 0.5 Absolute Eosinophils (0.0 - 0.7 /CUMM) 0 Absolute Basophils (0.0 - 0.2 /CUMM) 0 PUBS MCHC (33.0 - 37.0 G/DL) 32.3 L
--- NOTE | 2016-09-03 09:42 | PN- Housestaff ---
Subjective Follow-up For: ANIBAL Hyperkalemia Hypoglycemia CAD Subjective: Patient had no complaints overnight. Bradycardic, lopressor held, 4 beat VT overnight Review of Systems Constitutional: Reports: see HPI. Objective Last 24 Hrs of Vital Signs/I&O Vital Signs Date Time Temp Pulse Resp B/P B/P Pulse O2 O2 Flow FiO2 Mean Ox Delivery Rate 09/03 1459 97.4 52 20 130/56 97 Nasal 2.0L Cannula 09/03 0952 96 Nasal 2.0L Cannula 09/03 0800 100 Nasal 2.0L Cannula 09/03 0630 97.8 75 20 122/66 100 Nasal Cannula 09/03 0000 Nasal 2.0L Cannula 09/02 2139 98.8 59 20 144/54 97 Nasal 2.0L Cannula 09/02 1930 96 Nasal 2.0L Cannula 09/02 1600 99 Nasal 2.0L Cannula Intake & Output 09/03 1600 09/03 0800 09/03 0000 Intake Total 1400 100 Output Total 600 1400 900 Balance 800 -1300 -900 Intake, IV 600 Intake, Oral 800 100 Output, Urine 600 1400 900 Physical Exam General Appearance: Alert, Oriented X3, Cooperative, No Acute Distress HEENT: Atraumatic, PERRLA Cardiovascular: Systolic murmur Lungs: Clear to Auscultation, Normal Air Movement Abdomen: Normal Bowel Sounds, Soft, No Tenderness, Umbilical hernia Extremities: No Clubbing, No Cyanosis Current Medications: Current Medications Sig/Elicia Start time Last Medication Dose Route Stop Time Status Admin Acetaminophen 650 MG Q6P PRN 08/31 0430 AC PO Aspirin Buffered 81 MG DAILY 08/31 1000 AC 09/03 PO 0930 Budesonide 0.5 MG DAILY 08/31 1900 AC 09/03 INH 0949 Diltiazem HCl 360 MG DAILY 08/31 1000 AC 09/03 PO 0929 Ferrous Sulfate 325 MG DAILY 09/02 1209 AC 09/03 PO 0930 Heparin Sodium 5,000 UNIT Q8 08/31 0600 AC 09/03 (Porcine) SC 1416 Insulin Aspart 0 TIDAC 09/01 1700 AC 09/02 SC 1237 Metoprolol Tartrate 25 MG BID 08/31 1000 DC 09/02 PO 1009 Nateglinide 60 MG TIDAC 09/01 1700 AC 09/03 PO 1251 Omeprazole 40 MG DAILY AC 08/31 0700 AC 09/03 PO 0604 Pravastatin Sodium 80 MG 1700 08/31 1700 AC 09/02 PO 1728 Sodium Chloride 1,000 ML Q13H 09/01 1015 AC 09/03 IV 1045 Sodium Chloride 2 SPRAY Q4P PRN 08/310 AC ARIANE 09/07 2118 Last 24 Hrs of Lab/Kalen Results Last 24 Hrs of Labs/Mics: Laboratory Tests 09/03/16 0610: Anion Gap 11, Estimated GFR 25 L, BUN/Creatinine Ratio 21.1, CBC w Diff NO MAN DIFF REQ, RBC 3.51 L, MCV 78.8 L, MCH 25.4 L, RDW 25.2 H, MPV 10.1, Gran % 77.1 H, Lymphocytes % 11.8 L, Monocytes % 10.0 H, Eosinophils % 0.9, Basophils % 0.2, Absolute Granulocytes 3.9, Absolute Lymphocytes 0.6 L, Absolute Monocytes 0.5, Absolute Eosinophils 0, Absolute Basophils 0, PUBS MCHC 32.3 L Assessment/Plan Assessment: Assessment 86 year old female with past medical history of 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 Her blood glucose was 32 at home and was found to be 52 by EMS. She also had a 3 day history of diarrhea and vomiting 1 day. In the ED she was found to have elevated creatinine and hyperkalemia to 5.6. Patient was given Kayexalate in the emergency room and no fluids as history of CHF is uncertain. She was admitted to the telemetry floor for monitoring because of her hyperkalemia and history of paroxysmal atrial fibrillation. * Hypoglycemic event with history of diabetes * Hyperkalemia * Paroxysmal atrial fibrillation not on anticoagulation * Acute kidney injury with questionable history of CKD * Anemia * Hypertension * COPD * History of CAD Plan Hypoglycemia: * Monitor blood glucose Accu-Cheks every 8 hours. Morning blood glucose was 134 afternoon blood glucose was 300. * Hold oral hypoglycemics metformin and glipizide and use sliding scale insulin coverage * Endocrinology saw patient and we have started nateglinide 60 mg tid. Sliding scale NovoLog should start with the sugar above 200 that we can observe the effects of the nateglinide. Therefore would change sliding-scale NovoLog to be less than 200 give no insulin, 201-250 give 2 units NovoLog, 251-300 give 3 units NovoLog, 301-350 give 4 units NovoLog, 351-400 give 5 units NovoLog. * Give D5 normal saline if patient becomes hypoglycemic. * Will observe on the nateglinide per Arsh Brown MD and reevaluate. Hyperkalemia * Likely secondary to acute renal failure * Continue to monitor patient on telemetry * Was given Kayexalate in the ED which causes diarrhea, further depleting her volume. * Currently potassium is 4.8 * Monitor electrolytes. Paroxysmal atrial fibrillation * Today patient was bradycardic to 46. She took her 25 mg metoprolol in the morning. We will now hold metoprolol. * Patient is on Cardizem but not on anticoagulation even though her CHADSVASC score warrants it. Due to her renal failure we need to be careful in taking the correct anticoagulant. * Check a 12-lead. * Recent will need a follow-up echocardiogram to reassess left ventricular function and wall motion abnormalities Acute kidney injury probably due to dehydration with questionable chronic kidney disease * Patient is quite dehydrated as is evidenced by her physical exam. This is likely contributed to her acute kidney injury. Patient was not given any fluids in the ED because of her unknown congestive heart failure status. Records were obtained from her recent echocardiogram in July 2016 which showed a normal left ejection fraction of 55% but moderate diastolic dysfunction. Currently she is being rehydrated with normal saline 75 an hour. * Chest x-ray shows prominent cardiac silhouette which limits evaluation at the left base, no edema. Physical exam shows clear lungs and she is satting 97% oxygen on room air. * Chest around renal/kidney done today shows no evidence of upper urinary tract obstruction but nonspecific evidence of renal disease * Urinalysis is normal except for some urine protein, and a moderate amount of bacteria. Specific gravity is normal at 1.01. Leukocyte esterase is negative signifying no urinary tract infection with Escherichia coli however this cannot rule out urinary tract infection with another bacteria species. * Patient's creatinine here was 3.3 in the ED, and is now 2.1. Trending down. BEP ordered * Lactic acid was 3.4 now is 1.7, trending down. Likely due to dehydration. * Patient's normal creatinine has been between 1.09 and 1.45 during the previous month when she was admitted to [facility], mild chronic kidney disease. * Hold potentially nephrotoxic drugs including her home metformin and lisinopril , avoid NSAIDs. Hold glipizide as well as it is renally cleared and patients with low renal clearance will retain it which will lead to persistent hypoglycemia. * As patient is severely dehydrated and has been having diarrhea, check stool for C. difficile. Anemia * Patient had hemoglobins from 7.7-8.5 on her last admission to [facility]. Now her hemoglobins are in the low nines. * Possibly due to renal failure. * No symptoms of anemia currently. * We expect her hemoglobin to slightly decreased on hydration due to dilution. * Patient is on home ferrous sulfatecan continue COPD * Is currently in no respiratory distress * Can continue on supplemental oxygen as needed CAD and Hypertension * Aspirin, pravastatin 80 mg, Cardizem 360 mg by mouth daily, Lopressor 25 mg by mouth 2 times a day CODE STATUS: Full Heart healthy diet DVT prophylaxis: Heparin 5000 units subcutaneous every 8 hours Problem List: 1. Acute on chronic renal failure 2. Hyperkalemia 3. Hypoglycemia Pain Ratin Pain Location: N/A Pain Goal: Remain pain free Pain Plan: N/A Tomorrow's Labs & Rationales: BEP to monitor renal function
--- NOTE | 2016-09-03 12:35 | PN- Att Addend ---
Attending Addendum Attending Brief Note Patient seen and examined. Plan of care discussed with the medical team and the patient. Available lab work and radiology test reports were reviewed. Patient is found sitting in chair comfortably. She denies any new complaints. She has no recent reported fever chills nausea vomiting or abdominal pain. Vital Signs Date Time Temp Pulse Resp B/P B/P Pulse O2 O2 Flow FiO2 Mean Ox Delivery Rate 09/03 0952 96 Nasal 2.0L Cannula 09/03 0800 100 Nasal 2.0L Cannula 09/03 0630 97.8 75 20 122/66 100 Nasal Cannula 09/03 0000 Nasal 2.0L Cannula 09/02 2139 98.8 59 20 144/54 97 Nasal 2.0L Cannula 09/02 1930 96 Nasal 2.0L Cannula 09/02 1600 99 Nasal 2.0L Cannula 09/02 1400 98.2 48 20 120/60 99 Intake & Output 09/03 1600 09/03 0800 09/03 0000 Intake Total 100 Output Total 1400 900 Balance -1300 -900 Intake, Oral 100 Output, Urine 1400 900 Exam: General: Patient awake alert oriented without any distress CVS: S1 plus S2 without any murmur or gallops Chest: Few scattered crepitation without any wheeze. There is no respiratory distress. Abdomen: Soft nontender, bowel sound present, no guarding or rebound [employer]: Awake alert oriented without any focal neuro deficit and follows command appropriately Extremities: No edema; no clubbing or cyanosis noted Laboratory Tests 09/03 0610 Chemistry Sodium (137 - 145 mmol/L) 145 Potassium (3.5 - 5.1 mmol/L) 4.2 Chloride (98 - 107 mmol/L) 114 H Carbon Dioxide (22 - 30 mmol/L) 20 L Anion Gap (5 - 16) 11 BUN (7 - 17 mg/dL) 40 H Creatinine (0.5 - 1.0 mg/dL) 1.9 H Estimated GFR (>60 ml/min) 25 L BUN/Creatinine Ratio (7 - 25 %) 21.1 Hematology CBC w Diff NO MAN DIFF REQ WBC (4.8 - 10.8 /CUMM) 5.1 RBC (4.20 - 5.40 /CUMM) 3.51 L Hgb (12.0 - 16.0 G/DL) 8.9 L Hct (37 - 47 %) 27.6 L MCV (81.0 - 99.0 FL) 78.8 L MCH (27.0 - 31.0 PG) 25.4 L RDW (11.5 - 14.5 %) 25.2 H Plt Count (130 - 400 /CUMM) 127 L MPV (7.4 - 10.4 FL) 10.1 Gran % (42.2 - 75.2 %) 77.1 H Lymphocytes % (20.5 - 51.1 %) 11.8 L Monocytes % (1.7 - 9.3 %) 10.0 H Eosinophils % (0 - 5 %) 0.9 Basophils % (0.0 - 2.0 %) 0.2 Absolute Granulocytes (1.4 - 6.5 /CUMM) 3.9 Absolute Lymphocytes (1.2 - 3.4 /CUMM) 0.6 L Absolute Monocytes (0.10 - 0.60 /CUMM) 0.5 Absolute Eosinophils (0.0 - 0.7 /CUMM) 0 Absolute Basophils (0.0 - 0.2 /CUMM) 0 PUBS MCHC (33.0 - 37.0 G/DL) 32.3 L Assessment * Gastroenteritis acute now improved * Hyperglycemia- patient being followed up by endocrinology * History of COPD * Chronic renal failure; acute and chronic renal failure; creatinine improving but not her baseline yet. Apparently her baseline creatinine is 1.3 Plan * Continue to monitor blood glucose. Continue nateglinide * If her sugars remain in good range we will consider discharge tomorrow * Prepare discharge paperwork for tomorrow * Increase ambulation * Patient was counseled to increase by mouth intake of fluids * Recheck creatinine tomorrow
--- NOTE | 2016-09-03 12:47 | PN- Cardiology ---
Subjective Subjective: Patient is resting currently. Offers no active complaint. Echocardiogram was done earlier. Objective Vital Signs and I&Os Vital Signs Date Time Temp Pulse Resp B/P B/P Pulse O2 O2 Flow FiO2 Mean Ox Delivery Rate 09/03 0952 96 Nasal 2.0L Cannula 09/03 0800 100 Nasal 2.0L Cannula 09/03 0630 97.8 75 20 122/66 100 Nasal Cannula 09/03 0000 Nasal 2.0L Cannula 09/02 2139 98.8 59 20 144/54 97 Nasal 2.0L Cannula 09/02 1930 96 Nasal 2.0L Cannula 09/02 1600 99 Nasal 2.0L Cannula 09/02 1400 98.2 48 20 120/60 99 Intake & Output 09/03 1600 09/03 0800 09/03 0000 09/02 1600 09/02 0800 09/02 0000 Intake Total 100 1125 840 750 Output Total 1400 354 392 6488 950 Balance -1300 -900 725 -260 -200 Intake, IV 525 600 300 Intake, Oral 100 600 240 450 Output, Urine 1400 989 122 2887 950 Physical Exam: General: no apparent distress. Alert. Eyes: No obvious scleral icterus. HEENT: No jugular venous distention or abnormal jugular venous pulsations. Cardiovascular: Normal intensity S1/S2. 2/6 systolic murmur Respiratory: Lungs clear to auscultation bilaterally. Abdomen: Soft, nontender with no guarding or rebound tenderness. Musculoskeletal: No clubbing or cyanosis noted, trace edema Skin: No obvious rashes or ulcerations. Neurologic: No gross focal deficits noted. Current Medications: Current Medications Sig/Elicia Start time Last Medication Dose Route Stop Time Status Admin Acetaminophen 650 MG Q6P PRN 08/31 0430 AC PO Aspirin Buffered 81 MG DAILY 08/31 1000 AC 09/03 PO 0930 Budesonide 0.5 MG DAILY 08/31 1900 AC 09/03 INH 0949 Diltiazem HCl 360 MG DAILY 08/31 1000 AC 09/03 PO 0929 Ferrous Sulfate 325 MG DAILY 09/02 1209 AC 09/03 PO 0930 Heparin Sodium 5,000 UNIT Q8 08/31 0600 AC 09/03 (Porcine) SC 0604 Insulin Aspart 0 TIDAC 09/01 1700 AC 09/02 SC 1237 Metoprolol Tartrate 25 MG BID 08/31 1000 DC 09/02 PO 1009 Nateglinide 60 MG TIDAC 09/01 1700 AC 09/03 PO 0804 Omeprazole 40 MG DAILY AC 08/31 0700 AC 09/03 PO 0604 Pravastatin Sodium 80 MG 1700 08/31 1700 AC 09/02 PO 1728 Sodium Chloride 1,000 ML Q13H 09/01 1015 AC 09/03 IV 1045 Sodium Chloride 2 SPRAY Q4P PRN 08/31 2130 AC ARIANE 09/07 2119 Results Last 48 Hrs of Labs/Mics: Laboratory Tests 09/03/16 0610: Anion Gap 11, Estimated GFR 25 L, BUN/Creatinine Ratio 21.1, CBC w Diff NO MAN DIFF REQ, RBC 3.51 L, MCV 78.8 L, MCH 25.4 L, RDW 25.2 H, MPV 10.1, Gran % 77.1 H, Lymphocytes % 11.8 L, Monocytes % 10.0 H, Eosinophils % 0.9, Basophils % 0.2, Absolute Granulocytes 3.9, Absolute Lymphocytes 0.6 L, Absolute Monocytes 0.5, Absolute Eosinophils 0, Absolute Basophils 0, PUBS MCHC 32.3 L 09/02/16 0607: Anion Gap 11, Estimated GFR 22 L, BUN/Creatinine Ratio 23.3 Recent Imaging Studies: Telemetry tracings were personally reviewed and shows sinus rhythm with a 7 beat wide complex run Assessment/Plan Assessment/Plan 1. Atrial arrhythmias. The patient has a history of atrial ectopy. Review of the monitor tracings here Sami show PACs but no evidence of MAT or atrial fibrillation. She does have underlying conduction system disease with a right bundle branch block. Apparently during her recent admission to [facility], there was no evidence of atrial fibrillation but there was a suggestion of multifocal atrial tachycardia. It was decided not to anticoagulate her at that time based on that data. At the moment I see no indication to change that plan. 2. Acute renal insufficiency 3. Diabetes with hypoglycemia 4. History of bioprosthetic aortic valve 5. History of mild cardiomyopathy with last ejection fraction 50-55%. History of diastolic dysfunction. History of inferolateral and apical hypo-to akinesia. -, Etiology of the aforementioned abnormalities unclear since the patient reportedly had no coronary artery disease at the time of her catheterization prior to the valve replacement. Unlikely interval development of coronary disease. Possible stress cardiomyopathy. 6. History of mild pulmonary hypertension 7. History of COPD Patient is doing well. She is hemodynamically stable. Creatinine is improving. No evidence of atrial fibrillation on telemetry. Follow-up echo results. Naren Cervantes MD [facility] Continue telemetry? Yes
[2016-09-03 14:59] VITALS: BP 130/56
[2016-09-03 23:30] VITALS: BP 126/60
--- NOTE | 2016-09-04 07:21 | PN- Diabetes ---
Assessment/Plan Assessment: The patient states she feels well. She is eating okay. She is presently on nateglinide 60 mg 3 times a day before each meal as well as sliding scale NovoLog which starts with the sugar over 200. Patient's fingerstick blood sugar this morning is not done yet . Things 6 blood sugars yesterday were 122 before breakfast, 182 before lunch, 196 before dinner, and 207 at bedtime. The patient's serum creatinine is down to 1.9 today. Plan: The patient's blood sugars are somewhat high. Suggest increase nateglinide to 120 mg 3 times a day before each meal. Continue the diabetic diet. If the patient goes home today she can go home on this dose of nateglinide and monitor her sugars. Her insulin coverage can be stopped. Further adjustments in her diabetic regimen may be necessary as an outpatient because her diet and activities will be different. Subjective Subjective: Feels okay Review of Systems Constitutional: Denies: chills, fever. Cardiovascular: Denies: chest pain. Respiratory: Denies: short of breath. Gastrointestinal: Denies: abdominal pain, nausea, vomiting. Skin: Reports: no symptoms. Objective Last 24 Hrs of Vital Signs/I&O Vital Signs Date Time Temp Pulse Resp B/P B/P Pulse O2 O2 Flow FiO2 Mean Ox Delivery Rate 09/04 0000 Nasal 2.0L Cannula 09/03 2330 98.1 68 20 126/60 97 Nasal Cannula 09/04 2023 95 Nasal 2.0L Cannula 09/03 1600 97 Nasal 2.0L Cannula 09/03 1459 97.4 52 20 130/56 97 Nasal 2.0L Cannula 09/03 0952 96 Nasal 2.0L Cannula 09/03 0800 100 Nasal 2.0L Cannula Intake & Output 09/04 0800 09/04 0000 09/03 1600 Intake Total 782 973 2751 Output Total 1700 700 600 Balance -750 -355 800 Intake, IV 600 225 600 Intake, Oral 350 120 800 Number 1 Bowel Movements Output, Urine 1700 700 600 Vital Signs Date Time Temp Pulse Resp B/P B/P Pulse O2 O2 Flow FiO2 Mean Ox Delivery Rate 09/04 0000 Nasal 2.0L Cannula 09/03 2330 98.1 68 20 126/60 97 Nasal Cannula 09/04 2023 95 Nasal 2.0L Cannula 09/03 1600 97 Nasal 2.0L Cannula 09/03 1459 97.4 52 20 130/56 97 Nasal 2.0L Cannula 09/03 0952 96 Nasal 2.0L Cannula 09/03 0800 100 Nasal 2.0L Cannula Intake & Output 09/04 0800 09/04 0000 09/03 1600 Intake Total 630 163 7529 Output Total 1700 700 600 Balance -750 -355 800 Intake, IV 600 225 600 Intake, Oral 350 120 800 Number 1 Bowel Movements Output, Urine 1700 700 600 Physical Exam General Appearance: alert, awake, comfortable Neck: normal inspection Respiratory: normal breath sounds Cardiovascular: regular rate/rhythm Abdomen: normal bowel sounds Back: normal inspection Current Medications: Current Medications Sig/Elicia Start time Last Medication Dose Route Stop Time Status Admin Acetaminophen 650 MG Q6P PRN 08/31 0430 AC PO Aspirin Buffered 81 MG DAILY 08/31 1000 AC 09/03 PO 0930 Budesonide 0.5 MG DAILY 08/31 1900 AC 09/03 INH 0949 Diltiazem HCl 360 MG DAILY 08/31 1000 AC 09/03 PO 0929 Ferrous Sulfate 325 MG DAILY 09/02 1209 AC 09/03 PO 0930 Heparin Sodium 5,000 UNIT Q8 08/31 0600 AC 09/04 (Porcine) SC 0646 Insulin Aspart 0 TIDAC 09/01 1700 AC 09/02 SC 1237 Nateglinide 60 MG TIDAC 09/01 1700 AC 09/03 PO 1808 Omeprazole 40 MG DAILY AC 08/31 0700 AC 09/04 PO 0646 Pravastatin Sodium 80 MG 1700 08/31 1700 AC 09/03 PO 1808 Sodium Chloride 1,000 ML Q13H 09/01 1015 AC 09/04 IV 0333 Sodium Chloride 2 SPRAY Q4P PRN 08/31 2130 AC ARIANE 09/07 2119 Laboratory Tests 09/04 0635 Chemistry Sodium Pending Potassium Pending Chloride Pending Carbon Dioxide Pending Anion Gap Pending BUN Pending Creatinine Pending BUN/Creatinine Ratio Pending
[2016-09-04] MEDS ORDERED: STARLIX120 M1 PO ×2 (09:38→11:38)
--- NOTE | 2016-09-04 10:43 | ECHOCARDIOGRAM REPORT ---
OLIVIER GAGNON Age: 86 : 1930 Gender: F Exam Date: 09/03/2016 10:47 Exam Location: [address] Ht (in): 56 Wt (lb): 140 BSA: 1.61 BP: 122 / 66 Ordering Physician: EDIS MILLARD, Referring Physician: [place] MD Technologist: Ashley Bates [facility] Room Number: 189-01 Indications: AFIB/FLUTTER Rhythm: Sinus Technical Quality: Good FINDINGS Left Ventricle Normal size left ventricle. Mild concentric left ventricular hypertrophy. Abnormal relaxation filling pattern of the left ventricle for age (stage 1 diastolic dysfunction). Normal left ventricular ejection fraction visually estimated at 55 %. Normal left ventricular wall motion. Right Ventricle Normal right ventricular size and function. Right Atrium Normal right atrial size. Left Atrium Mild left atrial dilatation. Mitral Valve Mild mitral annular calcification. Mild mitral regurgitation. Aortic Valve Bioprosthetic aortic valve appears is present. Peak velocity 3.39 m/s. Mean gradient is 23 mmHg. Tricuspid Valve Tricuspid valve not well visualized, grossly normal. Mild tricuspid regurgitation. Right ventricular systolic pressure estimated to be elevated at 50-55 mmHg. Pulmonic Valve Trace pulmonic regurgitation. Pericardium No pericardial effusion. Great Vessels Normal size aortic root. CONCLUSIONS Normal size left ventricle. Mild concentric left ventricular hypertrophy. Abnormal relaxation filling pattern of the left ventricle for age (stage 1 diastolic dysfunction). Mild left atrial dilatation. Mild mitral regurgitation. Bioprosthetic aortic valve appears is present. Peak velocity 3.39 m/s. Mean gradient is 23 mmHg. Mild tricuspid regurgitation. Trace pulmonic regurgitation. Normal left ventricular ejection fraction visually estimated at 55 Normal left ventricular wall motion. Pilo [place] M.D. (Electronically Signed) Final Date: 04 September 2016 10:43 MEASUREMENTS (Male / Female) Normal Values 2D ECHO LV Diastolic Diameter PLAX 5.3 cm 4.2 - 5.9 / 3.9 - 5.3 cm LV Systolic Diameter PLAX 3.5 cm 2.1 - 4.0 cm LV Fractional Shortening PLAX 34.0 % 25 - 46 % LV Ejection Fraction 2D Teich 62.4 % IVS Diastolic Thickness 1.3 cm LVPW Diastolic Thickness 1.3 cm LV Relative Wall Thickness 0.5 RV Internal Dim ED PLAX 3.4 cm 1.9 - 3.8 cm Aortic Root Diameter 2.9 cm LA Systolic Diameter LX 4.1 cm 3.0 - 4.0 / 2.7 - 3.8 cm LA Volume 52.0 cm 18 - 58 / 22 - 52 cm Ascending Aorta Diameter 2.7 cm DOPPLER AV Peak Velocity 339.0 cm/s AV Peak Gradient 46.0 mmHg AV Mean Velocity 224.0 cm/s AV Mean Gradient 23.0 mmHg AV Velocity Time Integral 77.1 cm LVOT Peak Velocity 108.0 cm/s LVOT Peak Gradient 4.7 mmHg LVOT Mean Velocity 228.0 cm/s LVOT Mean Gradient 25.0 mmHg LVOT Velocity Time Integral 80.2 cm MV Peak Velocity 120.0 cm/s MV Peak Gradient 5.8 mmHg MV Mean Velocity 65.3 cm/s MV Mean Gradient 2.0 mmHg Mitral E Point Velocity 82.4 cm/s Mitral A Point Velocity 108.0 cm/s Mitral E to A Ratio 0.8 MV PHT Velocity 118.0 cm/s MV Deceleration [place] 574.0 cm/s MV Pressure Half Time 61.7 ms MV Area PHT 3.6 cm MV Deceleration Time 177.0 ms TR Peak Velocity 347.0 cm/s TR Peak Gradient 48.2 mmHg Right Atrial Pressure 5.0 mmHg Pulmonary Artery Systolic Pressu 53.2 mmHg Right Ventricular Systolic Press 53.2 mmHg PV Peak Velocity 119.0 cm/s PV Peak Gradient 5.7 mmHg PV Mean Velocity 77.9 cm/s PV Mean Gradient 3.0 mmHg PV Velocity Time Integral 25.6 cm LV E' Lateral Velocity 5.6 cm/s Mitral E to LV E' Lateral Ratio 14.8 LV E' Septal Velocity 3.9 cm/s Mitral E to LV E' Septal Ratio 21.1
--- NOTE | 2016-09-04 10:52 | PN- Cardiology ---
Subjective Subjective: Feeling well. No current complaints. No chest pain. No shortness of breath. No palpitations. No diaphoresis. Objective Vital Signs and I&Os Vital Signs Date Time Temp Pulse Resp B/P B/P Pulse O2 O2 Flow FiO2 Mean Ox Delivery Rate 09/04 1026 96 Nasal 2.0L Cannula 09/04 0000 Nasal 2.0L Cannula 09/03 2330 98.1 68 20 126/60 97 Nasal Cannula 09/03 2024 95 Nasal 2.0L Cannula 09/03 1600 97 Nasal 2.0L Cannula 09/03 1459 97.4 52 20 130/56 97 Nasal 2.0L Cannula Intake & Output 09/04 1600 09/04 0800 09/04 0000 09/03 1600 09/03 0800 09/03 0000 Intake Total 684 669 6408 100 Output Total 1700 685 416 4528 900 Balance -750 -355 800 -1300 -900 Intake, IV 600 225 600 Intake, Oral 350 120 800 100 Number 1 Bowel Movements Output, Urine 1700 186 022 7081 900 Physical Exam: Gen: NAD HEENT: normal Lungs: clear to auscultation, normal resp. effort Heart: RRR, S1, S2, 2/6 systolic murmur Abdomen: Soft, nontender, no masses Extremities: No clubbing, cyanosis, or edema. Neuro: Alert and oriented x 3, cranial nerves intact Current Medications: Current Medications Sig/Elicia Start time Last Medication Dose Route Stop Time Status Admin Acetaminophen 650 MG Q6P PRN 08/31 0430 AC PO Aspirin Buffered 81 MG DAILY 08/31 1000 AC 09/04 PO 0910 Budesonide 0.5 MG DAILY 08/31 1900 AC 09/04 INH 1024 Diltiazem HCl 360 MG DAILY 08/31 1000 AC 09/04 PO 0910 Ferrous Sulfate 325 MG DAILY 09/02 1209 AC 09/04 PO 0910 Heparin Sodium 5,000 UNIT Q8 08/31 0600 AC 09/04 (Porcine) SC 0646 Insulin Aspart 0 TIDAC 09/01 1700 DC 09/02 SC 1237 Nateglinide 120 MG TIDAC 09/04 0800 AC 09/04 PO 0806 Nateglinide 60 MG TIDAC 09/01 1700 DC 09/03 PO 1808 Omeprazole 40 MG DAILY AC 08/31 0700 AC 09/04 PO 0646 Pravastatin Sodium 80 MG 1700 08/31 1700 AC 09/03 PO 1808 Sodium Chloride 1,000 ML Q13H 09/01 1015 AC 09/04 IV 0333 Sodium Chloride 2 SPRAY Q4P PRN 08/31 2130 AC ARIANE 09/07 2119 Results Last 48 Hrs of Labs/Mics: Laboratory Tests 09/04/16 0635: Anion Gap 10, Estimated GFR 28 L, BUN/Creatinine Ratio 20.0 09/03/16 0610: Anion Gap 11, Estimated GFR 25 L, BUN/Creatinine Ratio 21.1, CBC w Diff NO MAN DIFF REQ, RBC 3.51 L, MCV 78.8 L, MCH 25.4 L, RDW 25.2 H, MPV 10.1, Gran % 77.1 H, Lymphocytes % 11.8 L, Monocytes % 10.0 H, Eosinophils % 0.9, Basophils % 0.2, Absolute Granulocytes 3.9, Absolute Lymphocytes 0.6 L, Absolute Monocytes 0.5, Absolute Eosinophils 0, Absolute Basophils 0, PUBS MCHC 32.3 L Recent Imaging Studies: Echocardiogram: Normal size left ventricle. Mild concentric left ventricular hypertrophy. Abnormal relaxation filling pattern of the left ventricle for age (stage 1 diastolic dysfunction). Mild left atrial dilatation. Mild mitral regurgitation. Bioprosthetic aortic valve appears is present. Peak velocity 3.39 m/s. Mean gradient is 23 mmHg. Mild tricuspid regurgitation. Trace pulmonic regurgitation. Normal left ventricular ejection fraction visually estimated at 55 Assessment/Plan Assessment/Plan Assessment: 1. Bioprosthetic aortic valve 2. Premature atrial contractions 3. Chronic diastolic heart failure 4. Acute kidney injury, improved Plan: * Would keep off furosemide for now. * Restart irbestartan at reduced dose of 150 mg daily. * Follow up with Dr. Escobar in 2 weeks to evaluate whether diuretic therapy needs to be restarted. Continue telemetry? No
[2016-09-04] MEDS ORDERED: IRBESARTAN150 M1 PO ×3 (11:06→11:38)
--- NOTE | 2016-09-04 13:38 | PN- Housestaff ---
THEODORA CARDOSO,MORGAN 09/04/16 1312: Subjective Follow-up For: #1. Hypoglycemia #2. Acute kidney injury #3. Hyperkalemia #4. CAD #5. COPD Complaints: no complaints Tele-Events Since Last Visit: Patient was either in A. fib, sinus rhythm with PACs, bundle branch block Subjective: Patient was seen and examined bedside. Patient states that she feels well. Is eager to go home. She denies shortness of breath, cough chest pain or headache. Review of Systems Constitutional: Reports: no symptoms. EENTM: Reports: no symptoms. Cardiovascular: Reports: no symptoms. Respiratory: Reports: no symptoms. Gastrointestinal: Reports: no symptoms. Genitourinary: Reports: no symptoms. Musculoskeletal: Reports: no symptoms. Skin: Reports: no symptoms. Neurological/Psychological: Reports: no symptoms. Hematologic/Endocrine: Reports: no symptoms. Immunologic/Allergic: Reports: no symptoms. Objective Last 24 Hrs of Vital Signs/I&O Vital Signs Date Time Temp Pulse Resp B/P B/P Pulse O2 O2 Flow FiO2 Mean Ox Delivery Rate 09/04 1026 96 Nasal 2.0L Cannula 09/04 0800 97 Nasal 2.0L Cannula 09/04 0000 Nasal 2.0L Cannula 09/03 2330 98.1 68 20 126/60 97 Nasal Cannula 09/03 2024 95 Nasal 2.0L Cannula 09/03 1600 97 Nasal 2.0L Cannula 09/03 1459 97.4 52 20 130/56 97 Nasal 2.0L Cannula Intake & Output 09/04 1600 09/04 0800 09/04 0000 Intake Total 950 345 Output Total 1700 700 Balance -750 -355 Intake, IV 600 225 Intake, Oral 350 120 Number 1 Bowel Movements Output, Urine 1700 700 Physical Exam General Appearance: Alert, Oriented X3, Cooperative, No Acute Distress Skin: No Rashes, No Breakdown, No Significant Lesion Skin Temp/Moisture Exam: Warm/Dry Sepsis Skin Exam (color): Normal for Ethnicity HEENT: Atraumatic, EOMI, Mucous Membr. moist/pink Neck: Supple Cardiovascular: Normal S1, Normal S2, No Murmurs, Gallops, Rubs Lungs: Clear to Auscultation, Normal Air Movement Abdomen: Normal Bowel Sounds, Soft, No Tenderness, No Hepatospenomegaly Neurological: Normal Speech Extremities: No Clubbing, No Cyanosis, No Edema, Normal Pulses, No Tenderness/ Swelling Vascular: Pulses Symmetrical Sepsis Peripheral Pulse Location: Radial Current Medications: Current Medications Sig/Elicia Start time Last Medication Dose Route Stop Time Status Admin Acetaminophen 650 MG Q6P PRN 08/31 0430 AC PO Aspirin Buffered 81 MG DAILY 08/31 1000 AC 09/04 PO 0910 Budesonide 0.5 MG DAILY 08/31 1900 AC 09/04 INH 1024 Diltiazem HCl 360 MG DAILY 08/31 1000 AC 09/04 PO 0910 Ferrous Sulfate 325 MG DAILY 09/02 1209 AC 09/04 PO 0910 Heparin Sodium 5,000 UNIT Q8 08/31 0600 AC 09/04 (Porcine) SC 0646 Insulin Aspart 0 TIDAC 09/01 1700 DC 09/02 SC 1237 Nateglinide 120 MG TIDAC 09/04 0800 AC 09/04 PO 1215 Nateglinide 60 MG TIDAC 09/01 1700 DC 09/03 PO 1808 Omeprazole 40 MG DAILY AC 08/31 0700 AC 09/04 PO 0646 Pravastatin Sodium 80 MG 1700 08/31 1700 AC 09/03 PO 1808 Sodium Chloride 1,000 ML Q13H 09/01 1015 AC 09/04 IV 0333 Sodium Chloride 2 SPRAY Q4P PRN 08/31 2130 AC ARIANE 09/07 2118 Last 24 Hrs of Lab/Kal[place] Results Last 24 Hrs of Labs/Mics: Laboratory Tests 09/04/16 0635: Anion Gap 10, Estimated GFR 28 L, BUN/Creatinine Ratio 20.0 Lines/Diet/Fluids Fluids/Infusions: normal saline at 75/h Lines: peripheral lines Assessment/Plan Assessment: Assessment 86 year old female with past medical history of 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 Her blood glucose was 32 at home and was found to be 52 by EMS. She also had a 3 day history of diarrhea and vomiting 1 day. In the ED she was found to have elevated creatinine and hyperkalemia to 5.6. Patient was given Kayexalate in the emergency room and no fluids as history of CHF is uncertain. She was admitted to the telemetry floor for monitoring because of her hyperkalemia and history of paroxysmal atrial fibrillation. * Hypoglycemic event with history of diabetes * Hyperkalemia * Paroxysmal atrial fibrillation not on anticoagulation * Acute kidney injury with questionable history of CKD * Anemia * Hypertension * COPD * History of CAD Plan Hypoglycemia: * Monitor blood glucose Accu-Cheks every 8 hours. Morning blood glucose was 198 , yesterday's was from 122-196 * Hold oral hypoglycemics metformin and glyburide and use sliding scale insulin coverage for glucose levels over 200 * Endocrinology saw patient and we have started nateglinide 60 mg tid. Arsh Brown MD saw the patient today and suggests increasing nateglinide to 120 mg 3 times a day before each meal and to continue the diabetic diet. He would like to see her in his office in the following week. * Give D5 normal saline if patient becomes hypoglycemic. Hyperkalemia RESOLVED * Likely secondary to acute renal failure * Continue to monitor patient on telemetry * Was given Kayexalate in the ED which causes diarrhea, further depleting her volume. * Currently potassium is 4.3 * Monitor electrolytes. Paroxysmal atrial fibrillation * Today patient's pulse rates were between 52 and 75 . We are holding metoprolol. * Patient is on Cardizem but not on anticoagulation even though her CHADSVASC score warrants it. Due to her renal failure we need to be careful in taking the correct anticoagulant. * As per cardiology: The patient has a history of atrial ectopy. Review of the monitor tracings here Sami show PACs but no evidence of MAT or atrial fibrillation. She does have underlying conduction system disease with a right bundle branch block. Apparently during her recent admission to [facility], there was no evidence of atrial fibrillation but there was a suggestion of multifocal atrial tachycardia. It was decided not to anticoagulate her at that time based on that data. At the moment I see no indication to change that plan. * Patient received echocardiogram September 03 which showed normal left ventricular ejection fraction of 55%, and abnormal relaxation filling pattern of the left ventricle for age showing stage I diastolic dysfunction. Acute kidney injury probably due to dehydration with questionable chronic kidney disease * Patient is quite dehydrated as is evidenced by her physical exam. This is likely contributed to her acute kidney injury. Patient was not given any fluids in the ED because of her unknown congestive heart failure status. Records were obtained from her recent echocardiogram in July 2016 which showed a normal left ejection fraction of 55% but moderate diastolic dysfunction. Currently she is being rehydrated with normal saline 75 an hour. * As per cardiology can discharge patient off furosemide for now. * Patient's creatinine here was 3.3 in the ED, and is now 1.7. * Patient's normal creatinine has been between 1.09 and 1.45 during the previous month when she was admitted to [facility], mild chronic kidney disease. * Hold potentially nephrotoxic drugs including her home metformin and lisinopril , avoid NSAIDs. Hold glipizide as well as it is renally cleared and patients with low renal clearance will retain it which will lead to persistent hypoglycemia. Anemia * Patient had hemoglobins from 7.7-8.5 on her last admission to [facility]. Now her hemoglobins are in the low nines. * Possibly due to renal failure. * No symptoms of anemia currently. * We expect her hemoglobin to slightly decreased on hydration due to dilution. * Patient is on home ferrous sulfatecan continue COPD * Is currently in no respiratory distress * Can continue on supplemental oxygen as needed CAD and Hypertension * Aspirin, pravastatin 80 mg, Cardizem 360 mg by mouth daily. * Patient was on irbesartan 300 mg daily which was held due to kidney injury. As per cardiology we can discharge the patient on 150 mg daily. CODE STATUS: Full Heart healthy diet DVT prophylaxis: Heparin 5000 units subcutaneous every 8 hours Problem List: 1. Renal failure 2. Hypoglycemia 3. Hyperkalemia 4. Acute on chronic renal failure Pain Ratin Pain Location: None Pain Goal: Remain pain free Pain Plan: None Tomorrow's Labs & Rationales: Patient is to be discharged today KAYLAN PRATT MD 09/04/16 9946: Attending MD Review Statement Attending Statement Attending MD Statement: examined this patient, discuss w/resident/PA/CUSTOMER SUPPORT PROFESSIONAL, agreed w/resident/PA/CUSTOMER SUPPORT PROFESSIONAL, discussed with family, reviewed EMR data (avail), discussed with nursing, discussed with case mgmt, amended to note Attending Assessment/Plan: The patient was seen and discussed with house staff, Cardiology, Case Management and family (her son). Agree with plan of care as outlined. OK to discharge today.
[2016-09-04 14:39] VITALS: BP 138/70
--- NOTE | 2016-09-04 14:44 | PN- Student ---
Subjective Subjective: Today Ms. Aden continues to deny any complaints. She is feeling well and ready to go home. Objective Objective: Vitals T 98.5, P 62, RR 18, BP 138/70. 98% on 2L nasal cannula. Physical Exam General: Patient is sitting comfortably in chair eating breakfast in no acute distress. CV: Normal S1 S2. 2/6 Systolic murmur noted. Lungs: Clear to auscultation bilaterally posteriorly. Abdomen: Abdomen non tender to palpation. Normal active bowel sounds. Large hernia noted. Legs: No pedal edema. Bruises noted on both shins due to recent fall. Pertinent Labs BUN 34H, Creatinine 1.7H, Estimated GFR 28L RBC 3.51L, Hgb 8.9L, Hct 27.6 Echo 09/03/16 Normal size left ventricle. Mild concentric left ventricular hypertrophy. Abnormal relaxation filling pattern of the left ventricle for age (stage 1 diastolic dysfunction). Mild left atrial dilatation. Mild mitral regurgitation. Bioprosthetic aortic valve appears is present. Peak velocity 3.39 m/s. Mean gradient is 23 mmHg. Mild tricuspid regurgitation. Trace pulmonic regurgitation. Normal left ventricular ejection fraction visually estimated at 55 Results Results: Laboratory Tests 09/04/16 0635: Anion Gap 10, Estimated GFR 28 L, BUN/Creatinine Ratio 20.0 09/03/16 0610: Anion Gap 11, Estimated GFR 25 L, BUN/Creatinine Ratio 21.1, CBC w Diff NO MAN DIFF REQ, RBC 3.51 L, MCV 78.8 L, MCH 25.4 L, RDW 25.2 H, MPV 10.1, Gran % 77.1 H, Lymphocytes % 11.8 L, Monocytes % 10.0 H, Eosinophils % 0.9, Basophils % 0.2, Absolute Granulocytes 3.9, Absolute Lymphocytes 0.6 L, Absolute Monocytes 0.5, Absolute Eosinophils 0, Absolute Basophils 0, PUBS MCHC 32.3 L 09/02/16 0607: Anion Gap 11, Estimated GFR 22 L, BUN/Creatinine Ratio 23.3 Assessment/Plan Assessment: Ms. Aden is an 86 year old female with past medical history significant for COPD on 2L nasal cannula home oxygen, stage 2 diastolic heart failure, DM II, hypertension, esophageal cancer, and history of aortic valve replacement with bovine valve, who initially presented with hypoglycemia, diarrhea, and signs of dehydration. Today she has no complaints and is ready to go home. 1. Hypoglycemia (resolved) and history of DM II 2. Hyperkalemia (resolved) 3. Acute Kiney Injury 4. Anemia 5. History of hypertension and CAD 6. History of COPD 7. Questionable history of paroxysmal afib/ questionable afib on overnight telemerty Plan: 1. Hypoglycemia and history of DMII * Hypoglycemia has resolved * Hold oral hypoglycemics. * Give D5NS if patient becomes hypoglycemic. * Fingerstick glucose was 189 at 1125 and 198 at 0915 * Nateglinide increased to 120mg every 3 hours. * Novolog discontinued * Home metformin and glyburide discontinued 2. Hyperkalemia * Resolved * Given kayexalate in ED which can perpetuate diarrhea and dehydration. * Last value: 4.3 3. Acute Kidney Injury on top of chronic renal failure * Last creatinine was 1.7 * Continue to hold any nephrotoxic medications. 4. Anemia - CKD possible cause * Hb 8.9 today. Hemoglobin was between 7.7 and 8.5 during admission to [facility] 2 weeks ago. * Continue home Ferrous sulfate. 5. History of hypertension and CAD * As per cardiology. - Do not restart home furosemide at this time. - Restart Irbesartan at reduced dosage 150mg daily. - Follow-up with Dr. Escobar in 2 weeks to evaluate if diuretic should be restarted. * Continue home metoprolol 25mg BID. * Continue home baby aspirin and pravastatin 80mg. * Continue home cardizem 360 daily * Continue home aspirin 81mg. 6. History of COPD - in no current respiratory distress. * Continue home dose pulmicort. * Continue oxygen 2L nasal cannula. 7. Questionable history of paroxysmal afib/ questionable afib on overnight telemetry. * [employer] Worker determined EKG's from [facility] show PAC's but no evidence of MAT or afib. Underlying conduction system disease with a bundle branch block. -Anticoagulants not indicated at this time. -Continue current management. * Echo showed abnormal relaxation and filling pattern of left ventricle (stage 1 diastolic dysfunction). LVEF 55%. Mild concentric ventricular hypertrophy, mild left atrial dilation, mild mitral regurgation, mild tricuspid regurgitation, trace pulmonic regurgitation. * Patient to follow up with communications electrician supervisor within 2 weeks of discharge. DVT prophylaxis Heart healthy Diet Code Status: Full Patient being discharged today
== END 2016-09-04 14:40 | disposition home health service (06) | DRG 683 ==
LOC: ERH 23:47 → ERHI 08-31 02:53 → 1NO 08-31 02:53 → ENRESERV 08-31 03:38 → 1NO 08-31 05:02 → ENPENDDIS 09-04 09:57 → 1NO 09-04 14:40
PROVIDERS: Internal Medicine; Pediatrics; Student in an Organized Health Care Education/Training Program; ADMIT Internal Medicine
DX: N17.9 Acute kidney failure, unspecified (principal); I13.0 Hypertensive heart and chronic kidney disease with heart failure and stage 1 through stage 4 chronic kidney disease, or unspecified chronic kidney disease; I48.0 Paroxysmal atrial fibrillation; E87.2 Acidosis; E11.22 Type 2 diabetes mellitus with diabetic chronic kidney disease; I50.32 Chronic diastolic (congestive) heart failure; E86.0 Dehydration; E11.649 Type 2 diabetes mellitus with hypoglycemia without coma; E11.65 Type 2 diabetes mellitus with hyperglycemia; I27.2 Other secondary pulmonary hypertension; I42.9 Cardiomyopathy, unspecified; R00.1 Bradycardia, unspecified; E87.5 Hyperkalemia; N18.9 Chronic kidney disease, unspecified; Z79.84 Long term (current) use of oral hypoglycemic drugs; I45.9 Conduction disorder, unspecified; I45.10 Unspecified right bundle-branch block; J44.9 Chronic obstructive pulmonary disease, unspecified; Z99.81 Dependence on supplemental oxygen; Z95.2 Presence of prosthetic heart valve; I25.10 Atherosclerotic heart disease of native coronary artery without angina pectoris; Z79.82 Long term (current) use of aspirin; D64.9 Anemia, unspecified; Z87.891 Personal history of nicotine dependence; Z85.01 Personal history of malignant neoplasm of esophagus; K52.9 Noninfective gastroenteritis and colitis, unspecified
CPT/HCPCS: 1NSP; 36415; 76775; 81001; 82436; 87045; 93005; 93010; 93306; 97116-GO; 97161-GP; J1644; J7626